=== PATIENT | male | born 1950 | race Caucasian/White ===

== ENCOUNTER → 2019-03-06 | Outpatient (CLI) | payer MEDICARE, BC ==
--- NOTE | 2019-03-06 13:01 | US ---
EXAMINATION TYPE: US duplex aorta DATE OF EXAM: 03/06/2019 COMPARISON: NONE CLINICAL HISTORY: 68-year-old male Z13.6 Screening for AAA. TECHNIQUE: Multiple sonographic images of the abdominal aorta are obtained. FINDINGS: EXAM MEASUREMENTS: Abdominal Aorta: Proximal: 1.9 x 1.8 cm Mid: 2.1 x 1.8 cm Distal: 1.9 x 1.8 cm Bifurcation: 1.5 x 1.5cm 1.4 x 1.5 cm IMPRESSION: Borderline ectatic common iliac arteries measuring up to 1.5 cm. Otherwise, no sonographic evidence f or AAA.
== END | disposition home or self-care (01) ==
LOC: RADUSWWP 08:44
PROVIDERS: ATTEND Family Medicine
DX: Z13.6 Encounter for screening for cardiovascular disorders (principal); I77.89 Other specified disorders of arteries and arterioles
CPT/HCPCS: 93979

== ENCOUNTER 2023-11-24 17:57 | Observation (INO) | payer BC, MEDICARE ==
[2023-11-24 18:14] VITALS: RESP 18; TEMP 98.7
[2023-11-24 18:41] LABS: Basophils # (A) 0.1 k/uL (0-0.2); Basophils % (A) 1 %; Eosinophils # (A) 0.2 k/uL (0-0.7); Eosinophils % (A) 2 %; HCT 50.2 % (39.0-53.0); HGB 17.6 gm/dL (13.0-17.5); Lymphocytes # (A) 2.1 k/uL (1.0-4.8); Lymphocytes % (A) 23 %; MCH 31.8 pg (25.0-35.0); Mean Platelet Volume 8.8; Monocytes # (A) 0.6 k/uL (0-1.0); Monocytes % (A) 6 %; Neutrophils # (A) 5.8 k/uL (1.3-7.7); Neutrophils % (A) 65 %; Platelet Count 220 k/uL (150-450); RBC 5.52 m/uL (4.30-5.90); RDW 12.9 % (11.5-15.5); WBC 8.9 k/uL (3.8-10.6)
[2023-11-24 18:45] LABS: INR 0.9 (<1.2); Prothrombin Time 10.2 sec (10.0-12.5)
[2023-11-24 18:46] LABS: Partial Thromboplastin Time 23.1 sec (22.0-30.0)
[2023-11-24 18:58] LABS: ALT 46 U/L (4-49); AST 50 U/L (17-59); African American GFR (CKD) >90 (>60 ml/min/1.73 sqM); Albumin 4.1 g/dL (3.5-5.0); Alkaline Phosphatase 114 U/L (38-126); Anion Gap 10 mmol/L; Blood Urea Nitrogen 13 mg/dL (9-20); Calcium 9.6 mg/dL (8.4-10.2); Carbon Dioxide 27 mmol/L (22-30); Chloride 100 mmol/L (98-107); Creatine Kinase 38 U/L (55-170); Glucose 269 mg/dL (74-99); Non-African American GFR(CKD) >90 (>60 ml/min/1.73 sqM); Potassium 4.1 mmol/L (3.5-5.1); Sodium 137 mmol/L (137-145); Total Protein 7.4 g/dL (6.3-8.2)
--- NOTE | 2023-11-24 19:14 | CT ---
EXAMINATION TYPE: CT brain cspine wo con CT DLP: 1625.8 mGycm, Automated exposure control for dose reduction was used. DATE OF EXAM: 11/24/2023 6:57 PM COMPARISON: None. CLINICAL INDICATION:Male, 73 years old with history of numbness; numbness in fingertips, pt does have known issues with his shoulders. dizziness. pt has hx of vertigo, pt says this time it isn't subsidi ng. TECHNIQUE: Brain: Multiple axial CT images of the brain were obtained without IV contrast. Cspine: Axial CT images from the skull base to the inferior aspect of T2 we obtained without intraven ous contrast. Coronal and sagittal reformatted images were also reviewed. FINDINGS: Brain: Extra-axial spaces: No abnormal extra-axial fluid collections. Ventricular system: Appear dilated in proportion to the degree of cerebral atrophy. Cerebral parenchyma: No increased attenuation to suggest acute intraparenchymal hemorrhage. The gra y-white matter interface appears maintained. Mild/moderate generalized brain atrophy. Scattered hyp oattenuating areas are seen within the cerebral white matter, nonspecific but most often seen with ch ronic microvascular ischemic changes; mild in degree. Cerebellum: No acute abnormality. Mass effect: No evidence of mass effect or midline shift. Intracranial vasculature: Mild atherosclerotic calcifications of the larger arteries near the skull b ase. Soft tissues: Normal. Visualized orbits: Orbital contents appear grossly intact. Calvarium/osseous structures: No evidence of calvarial fracture. Paranasal sinuses and mastoid air cells: Clear. Mild mucosal thickening, mucous retention cyst or po lyp in the right maxillary sinus. Mastoids are clear. Mild nasal septal deviation to the right with s mall bony spur. MRI is more sensitive for detecting acute processes such as infarct, and may be considered if clinica lly warranted. Cervical spine: Fracture: None seen. Osseous structures, spinal canal/neural foramina: Mild multilevel degenerative disk disease and facet arthrosis. Craniocervical junction is intact. I see no significant narrowing of the spinal canal or neuroforamina. Largest disc marginal osteophyte seen at C6-C7. If there is ongoing concern MRI could further evaluate. Vertebral alignment: No traumatic malalignment. Preserved normal cervical lordosis. Neck soft tissues: No acute finding.. Lung apices show some presumed scarring, no focal consolidation or pneumothorax. Other: Lung apices show no acute infiltrate or pneumothorax. IMPRESSION: CT head: 1. No acute intracranial CT abnormality. 2. Mild to moderate atrophy and chronic microvascular ischemic changes. CT cervical spine: 1. No evidence of acute cervical spine fracture or traumatic malalignment. 2. Mild cervical spondylosis.
--- NOTE | 2023-11-24 19:44 | ED ---
General Adult HPI - General Chief complaint: Neuro Symptoms/Deficit Stated complaint: stroke like symptoms Time Seen by Provider: 11/24/23 19:10 Source: patient Mode of arrival: ambulatory Limitations: no limitations - History of Present Illness Initial comments: 73-year-old man with past medical history of thyroid cancer who presents to the emergency department with right arm paresthesias, left eye visual disturbance and gait dysfunction. States that around 6 PM last night he began having sudden onset of balance issues and visual disturbance. States he feels as if his left eye is not working together with his right eye. It is making him feel off balance and as if he does not have spatial perception. He reports he almost fell because of it. He is also reporting paresthesias in his right arm and some paresthesias in his right leg. Patient went to sleep thinking that his symptoms would go away. He denies history of stroke. He previously was told that he was a diabetic however with weight loss and diet changes he did not require any medications. States he has not followed with a primary care doctor in several years. He does arrive hypertensive. Denies history of hypertension. He denies headaches. He does admit to some right-sided neck pain which is chronic since his surgery. He denies any weakness in his extremities. No other alleviating, precipitating or modifying factors - Related Data Home Medications Medication Instructions Recorded Confirmed Ibuprofen [Motrin Ib] 200 mg PO Q8H PRN 11/24/23 11/24/23 Levothyroxine Sodium 137 mcg PO DAILY@1400 11/24/23 11/24/23 Allergies Allergy/AdvReac Type Severity Reaction Status Date / Time Iodinated Contrast Media Allergy Anaphylaxis Verified 11/24/23 21:24 shellfish derived Allergy Anaphylaxis Verified 11/24/23 21:24 Tetanus Vaccines and Toxoid Allergy Anaphylaxis Verified 11/24/23 21:24 Review of Systems ROS Statement: Those systems with pertinent positive or pertinent negative responses have been documented in the HPI. ROS Other: All systems not noted in ROS Statement are negative. Past Medical History Past Medical History: Cancer, Thyroid Disorder Additional Past Medical History / Comment(s): thyroid cancer History of Any Multi-Drug Resistant Organisms: None Reported Past Surgical History: Orthopedic Surgery Additional Past Surgical History / Comment(s): thyroidectomy Past Psychological History: No Psychological Hx Reported Smoking Status: Never smoker Past Alcohol Use History: None Reported Past Drug Use History: None Reported General Exam Limitations: no limitations General appearance: alert, in no apparent distress Head exam: Present: atraumatic, normocephalic, normal inspection Eye exam: Present: normal appearance, PERRL, EOMI. Absent: scleral icterus, conjunctival injection, periorbital swelling ENT exam: Present: normal exam, mucous membranes moist Neck exam: Present: normal inspection. Absent: tenderness, meningismus, lymphadenopathy Respiratory exam: Present: normal lung sounds bilaterally. Absent: respiratory distress, wheezes, rales, rhonchi, stridor Cardiovascular Exam: Present: normal rhythm, tachycardia, normal heart sounds. Absent: systolic murmur, diastolic murmur, rubs, gallop, clicks GI/Abdominal exam: Present: soft, normal bowel sounds. Absent: distended, tenderness, guarding, rebound, rigid Extremities exam: Present: normal inspection, full ROM, normal capillary refill. Absent: tenderness, pedal edema, joint swelling, calf tenderness Back exam: Present: normal inspection Neurological exam: Present: alert, oriented X3, CN II-XII intact Psychiatric exam: Present: normal affect, normal mood Skin exam: Present: warm, dry, intact, normal color. Absent: rash Course Vital Signs 11/24/23 11/24/23 11/24/23 18:02 19:43 21:50 Temperature 98.7 F Pulse Rate 106 H 108 H 87 Respiratory 18 18 18 Rate Blood Pressure 195/123 204/117 163/99 O2 Sat by Pulse 107 H Oximetry Medical Decision Making - Medical Decision Making Was pt. sent in by a medical professional or institution (, PA, ANIMAL CARETAKER, urgent care, hospital, or retirement...) When possible be specific @ -No Did you speak to anyone other than the patient for history (EMS, parent, family, police, friend...)? What history was obtained from this source @ -Spoke with the patient's for history Did you review nursing and triage notes (agree or disagree)? Why? @ -I reviewed and agree with nursing and triage notes Were old charts reviewed (outside hosp., previous admission, EMS record, old EKG, old radiological studies, urgent care reports/EKG's, retirement records)? Report findings @ -No old charts were reviewed Differential Diagnosis (chest pain, altered mental status, abdominal pain women, abdominal pain men, vaginal bleeding, weakness, fever, dyspnea, syncope, headache, dizziness, GI bleed, back pain, seizure, CVA, palpatations, mental health, musculoskeletal)? @ -Differential CVA Ischemic stroke, hemorrhagic stroke, brain tumor, atypical migraine, Wernicke's encephalopathy, seizure, multiple sclerosis, meningitis, encephalitis, hypoglycemia, Guillain-Brito, electrolytes disturbance, myasthenia gravis.... This is not meant to be an all-inclusive list EKG interpreted by me (3pts min.). @ -Not done X-rays interpreted by me (1pt min.). @ -Yes and demonstrates no acute process CT interpreted by me (1pt min.). @ -Yes and demonstrates no acute process U/S interpreted by me (1pt. min.). @ -None done What testing was considered but not performed or refused? (CT, X-rays, U/S, labs)? Why? @ -None What meds were considered but not given or refused? Why? @ -None Did you discuss the management of the patient with other professionals (professionals i.e. , PA, ANIMAL CARETAKER, lab, RT, psych nurse, social media manager, divorce lawyer, teacher, chief wellness officer, case consultant)? Give summary @ -Spoke with Dr. Salinas who is agreeable to admission Was smoking cessation discussed for >3mins.? @ -No Was critical care preformed (if so, how long)? @ -No Were there social determinants of health that impacted care today? How? (Homelessness, low income, unemployed, alcoholism, drug addiction, transportation, low edu. Level, literacy, decrease access to med. care, snf, rehab)? @ -No Was there de-escalation of care discussed even if they declined (Discuss DNR or withdrawal of care, Hospice)? DNR status @ -No What co-morbidities impacted this encounter? (DM, HTN, Smoking, COPD, CAD, Cancer, CVA, ARF, Chemo, Hep., AIDS, mental health diagnosis, sleep apnea, morbid obesity)? @ -None Was patient admitted / discharged? Hospital course, mention meds given and route, prescriptions, significant lab abnormalities, going to OR and other pertinent info. @ -Upon arrival patient is placed into room 3. A thorough history and physical exam was performed. Patient does not have any appreciable weakness, perceived sensory changes or speech deficits and therefore his score is 0. His reported symptoms are concerning for CVA however he is 24 hours past the onset of his symptoms and therefore code stroke was not activated. I did conduct laboratory studies. Patient is sent for a CT of his head. Upon return the results they are discussed with the patient. He does have hypertension and therefore a dose of labetalol is ordered. Patient also has hyperglycemia with concern for diabetes and therefore hemoglobin A1c is drawn. Patient will be placed on a sliding scale. As he is reporting left visual deficit with right sided paresthe lissette in his arms and legs I did recommend further evaluation of CVA especially since the patient now has risk factors. Patient was agreeable to this. Patient will be admitted to Dr. Salinas to admission. I will place collagen on consult Undiagnosed new problem with uncertain prognosis? @ -Yes Drug Therapy requiring intensive monitoring for toxicity (Heparin, Nitro, Insulin, Cardizem)? @ -No Were any procedures done? @ -No Diagnosis/symptom? @ -Acute right arm paresthesias, acute visual disturbance, acute ataxia, possible CVA, new onset hypertension, new onset hyperglycemia Acute, or Chronic, or Acute on Chronic? @ -Acute Uncomplicated (without systemic symptoms) or Complicated (systemic symptoms)? @ -Complicated Side effects of treatment? @ -No Exacerbation, Progression, or Severe Exacerbation? @ -No Poses a threat to life or bodily function? How? (Chest pain, USA, GA, pneumonia, PE, COPD, DKA, ARF, appy, cholecystitis, CVA, Diverticulitis, Homicidal, Suicidal, threat to staff... and all critical care pts) @ -Yes as patient presents with possible concern for CVA - Lab Data Result diagrams: 11/24/23 18:28 11/24/23 18:28 Lab Results 11/24/23 11/24/23 11/24/23 Range/Units 18:28 18:28 18:28 WBC 8.9 (3.8-10.6) k/uL RBC 5.52 (4.30-5.90) m/uL Hgb 17.6 H (13.0-17.5) gm/dL Hct 50.2 (39.0-53.0) % MCV 91.0 (80.0-100.0) fL MCH 31.8 (25.0-35.0) pg MCHC 35.0 (31.0-37.0) g/dL RDW 12.9 (11.5-15.5) % Plt Count 220 (150-450) k/uL MPV 8.8 Neutrophils % 65 % Lymphocytes % 23 % Monocytes % 6 % Eosinophils % 2 % Basophils % 1 % Neutrophils # 5.8 (1.3-7.7) k/uL Lymphocytes # 2.1 (1.0-4.8) k/uL Monocytes # 0.6 (0-1.0) k/uL Eosinophils # 0.2 (0-0.7) k/uL Basophils # 0.1 (0-0.2) k/uL PT 10.2 (10.0-12.5) sec INR 0.9 (<1.2) APTT 23.1 (22.0-30.0) sec Sodium 137 (137-145) mmol/L Potassium 4.1 (3.5-5.1) mmol/L Chloride 100 (98-107) mmol/L Carbon Dioxide 27 (22-30) mmol/L Anion Gap 10 mmol/L BUN 13 (9-20) mg/dL Creatinine 0.77 (0.66-1.25) mg/dL Est GFR (CKD-EPI)AfAm >90 (>60 ml/min/1.73 sqM) Est GFR (CKD-EPI)NonAf >90 (>60 ml/min/1.73 sqM) Glucose 269 H (74-99) mg/dL Calcium 9.6 (8.4-10.2) mg/dL Total Bilirubin 1.0 (0.2-1.3) mg/dL AST 50 (17-59) U/L ALT 46 (4-49) U/L Alkaline Phosphatase 114 (38-126) U/L Creatine Kinase 38 L (55-170) U/L Troponin I (0.000-0.034) ng/mL Total Protein 7.4 (6.3-8.2) g/dL Albumin 4.1 (3.5-5.0) g/dL Urine Color Urine Appearance (Clear) Urine pH (5.0-8.0) Ur Specific [place] (1.001-1.035) Urine Protein (Negative) Urine Glucose (UA) (Negative) Urine Ketones (Negative) Urine Blood (Negative) Urine Nitrite (Negative) Urine Bilirubin (Negative) Urine Urobilinogen (<2.0) mg/dL Ur Leukocyte Esterase (Negative) Urine RBC (0-5) /hpf Urine WBC (0-5) /hpf Urine Mucus (None) /hpf 11/24/23 11/24/23 Range/Units 18:28 19:36 WBC (3.8-10.6) k/uL RBC (4.30-5.90) m/uL Hgb (13.0-17.5) gm/dL Hct (39.0-53.0) % MCV (80.0-100.0) fL MCH (25.0-35.0) pg MCHC (31.0-37.0) g/dL RDW (11.5-15.5) % Plt Count (150-450) k/uL MPV Neutrophils % % Lymphocytes % % Monocytes % % Eosinophils % % Basophils % % Neutrophils # (1.3-7.7) k/uL Lymphocytes # (1.0-4.8) k/uL Monocytes # (0-1.0) k/uL Eosinophils # (0-0.7) k/uL Basophils # (0-0.2) k/uL PT (10.0-12.5) sec INR (<1.2) APTT (22.0-30.0) sec Sodium (137-145) mmol/L Potassium (3.5-5.1) mmol/L Chloride (98-107) mmol/L Carbon Dioxide (22-30) mmol/L Anion Gap mmol/L BUN (9-20) mg/dL Creatinine (0.66-1.25) mg/dL Est GFR (CKD-EPI)AfAm (>60 ml/min/1.73 sqM) Est GFR (CKD-EPI)NonAf (>60 ml/min/1.73 sqM) Glucose (74-99) mg/dL Calcium (8.4-10.2) mg/dL Total Bilirubin (0.2-1.3) mg/dL AST (17-59) U/L ALT (4-49) U/L Alkaline Phosphatase (38-126) U/L Creatine Kinase (55-170) U/L Troponin I <0.012 (0.000-0.034) ng/mL Total Protein (6.3-8.2) g/dL Albumin (3.5-5.0) g/dL Urine Color Light Yellow Urine Appearance Clear (Clear) Urine pH 6.0 (5.0-8.0) Ur Specific [place] 1.020 (1.001-1.035) Urine Protein 1+ H (Negative) Urine Glucose (UA) 4+ H (Negative) Urine Ketones 2+ H (Negative) Urine Blood Negative (Negative) Urine Nitrite Negative (Negative) Urine Bilirubin Negative (Negative) Urine Urobilinogen <2.0 (<2.0) mg/dL Ur Leukocyte Esterase Negative (Negative) Urine RBC 1 (0-5) /hpf Urine WBC 1 (0-5) /hpf Urine Mucus Rare H (None) /hpf Disposition Clinical Impression: Arm paresthesia, right, Hypertension, Hyperglycemia Disposition: ADMITTED IP TO THIS [facility] Condition: Stable Is patient prescribed a controlled substance at d/c from ED?: No Time of Disposition: 21:22 Decision to Admit Reason: Admit from EC Decision Date: 11/24/23 Decision Time: 21:22
[2023-11-24 20:05] LABS: Appearance,Urine Clear (Clear); Bilirubin,Urine Negative (Negative); Blood,Urine Negative (Negative); Color,Urine Light Yellow; Glucose,Urine (UA) 4+ (Negative); Leukocyte Esterase,Urine Negative (Negative); Mucus,Urine Rare /hpf; Nitrite,Urine Negative (Negative); Protein,Urine 1+ (Negative); RBC,Urine 1 /hpf (0-5); Urobilinogen,Urine <2.0 mg/dL (<2.0); WBC,Urine 1 /hpf (0-5)
[2023-11-24 20:37] LABS: Ketones,Urine 2+ (Negative)
--- NOTE | 2023-11-24 20:50 | XR ---
EXAMINATION TYPE: XR chest 2V DATE OF EXAM: 11/24/2023 6:40 PM CLINICAL INDICATION:Male, 73 years old with history of altered mental status; [facility] COMPARISON: None TECHNIQUE: XR chest 2V. Frontal and lateral views of the chest.. FINDINGS: Lines/Tubes/Devices: No indwelling lines are seen. Heart/mediastinum: There is upper normal. Moderate aortic tortuosity. Central airways appear patent. Pulmonary vascularity: Not increased, Lungs/Pleura: Lungs appear mildly hyperinflated with interstitial coarsening, this can be seen with C OPD. No focal infiltrate, effusion, or pneumothorax. Musculoskeletal: No acute osseous abnormality demonstrated in the limits of the exam. Degenerative c hanges of the spine and shoulders. Other findings: None. IMPRESSION: No acute cardiopulmonary abnormality.
[2023-11-24] MEDS ORDERED: ACETAMINOPHEN TAB 325 MG TAB PO PRN (21:18)
[2023-11-24] MEDS ORDERED: NALOXONE 0.4 MG/ML 1 ML VIAL IV PRN (21:18)
[2023-11-24] MEDS: SODIUM CHLORIDE 0.9% 1,000 ML IV SCH (21:49)
[2023-11-24] MEDS: LABETALOL 5 MG/ML VIAL MDV IVP STA (21:49)
[2023-11-24] MEDS ORDERED: DEXTROSE 50% SYRINGE 50 ML IVP PRN ×2 (22:02)
[2023-11-24] MEDS: ASPIRIN 325 MG TAB PO SCH (22:37)
[2023-11-24 23:51] LABS: Glucose,Whole Blood 245 mg/dL (70-110)
[2023-11-25 02:41] VITALS: BP 185/93; PULSE 95
[2023-11-25] MEDS ORDERED: INSULIN ASPART (NovoLOG) 100 UNIT/ML VIAL SQ SCH (07:30)
[2023-11-25] MEDS ORDERED: LEVOTHYROXINE 137 MCG TAB PO SCH (14:00)
== END 2023-11-25 02:30 | disposition left against medical advice (07) ==
LOC: EC 17:57 → 3SCARD 21:20
PROVIDERS: ADMIT Internal Medicine; ATTEND Internal Medicine
DX: R20.2 Paresthesia of skin (principal); R73.9 Hyperglycemia, unspecified; I10 Essential (primary) hypertension; E89.0 Postprocedural hypothyroidism; Z85.850 Personal history of malignant neoplasm of thyroid; Z79.890 Hormone replacement therapy; Z53.29 Procedure and treatment not carried out because of patient's decision for other reasons
CPT/HCPCS: 96374; 99285; 36415; 93005; 80053; 84443; 82550; 84484; 85025; 85610; 85730; 81001; 83036; 71046; 72125; 70450; G0378 ×2; J1920

== ENCOUNTER 2023-11-25 12:14 | Inpatient (IN) | payer MEDICARE ==
--- NOTE | 2023-11-25 12:59 | ED ---
General Adult HPI - General Chief complaint: Neuro Symptoms/Deficit Stated complaint: Tingling in arm/side, blurred vision Time Seen by Provider: 11/25/23 12:36 Source: patient, family, RN notes reviewed Mode of arrival: ambulatory Limitations: no limitations - History of Present Illness Initial comments: Patient is a 73-year-old male presenting to the emergency department with concern for neurological problems. Onset of symptoms was yesterday evening. Patient left early this morning because the bed was not comfortable. Patient is having continued symptoms however and decided to return. Patient is feeling off balance and having difficulty with walking. Patient has right arm paresthesia. Patient also has double vision. Patient does not feel like his left eye is working in coordination with his right eye. - Related Data Home Medications Medication Instructions Recorded Confirmed Ibuprofen [Motrin Ib] 200 mg PO Q8H PRN 11/24/23 11/24/23 Levothyroxine Sodium 137 mcg PO DAILY@1400 11/24/23 11/24/23 Allergies Allergy/AdvReac Type Severity Reaction Status Date / Time Iodinated Contrast Media Allergy Anaphylaxis Verified 11/25/23 12:35 shellfish derived Allergy Anaphylaxis Verified 11/25/23 12:35 Tetanus Vaccines and Toxoid Allergy Anaphylaxis Verified 11/25/23 12:35 Review of Systems ROS Statement: Those systems with pertinent positive or pertinent negative responses have been documented in the HPI. ROS Other: All systems not noted in ROS Statement are negative. Constitutional: Denies: fever Eyes: Reports: as per HPI, vision change ENT: Denies: ear pain Respiratory: Denies: cough Cardiovascular: Denies: chest pain Endocrine: Denies: fatigue Gastrointestinal: Denies: abdominal pain Neurological: Reports: as per HPI, paresthesias, abnormal gait. Denies: headache, weakness Past Medical History Past Medical History: Cancer, Thyroid Disorder Additional Past Medical History / Comment(s): thyroid cancer History of Any Multi-Drug Resistant Organisms: None Reported Past Surgical History: Orthopedic Surgery Additional Past Surgical History / Comment(s): thyroidectomy Past Psychological History: No Psychological Hx Reported Smoking Status: Never smoker Past Alcohol Use History: None Reported Past Drug Use History: None Reported General Exam Limitations: no limitations General appearance: alert, in no apparent distress Head exam: Present: normocephalic Eye exam: Present: normal appearance, PERRL, EOMI Neck exam: Present: normal inspection Respiratory exam: Present: normal lung sounds bilaterally Cardiovascular Exam: Present: regular rate, normal rhythm GI/Abdominal exam: Present: soft. Absent: tenderness Extremities exam: Present: normal inspection. Absent: pedal edema, calf tenderness Neurological exam: Present: alert, oriented X3, CN II-XII intact. Absent: motor sensory deficit Expanded Neurological exam: Present: protecting the airway Speech: Present: fluid speech Cranial nerves: EOM's Intact: Normal, Facial Sensation: Normal Sensory exam: Upper Extremity Light Touch: Normal, Lower Extremity Light Touch: Abnormal Right (Patient states there may be decreased sensation right lower leg) Motor strength exam: RUE: 5, LUE: 5, RLE: 5, LLE: 5 Eye Response: (4) open spontaneously Motor Response: (6) obeys commands Verbal Response: (5) oriented Psychiatric exam: Present: normal affect, normal mood Skin exam: Present: normal color Course Vital Signs 11/25/23 12:32 Temperature 98.2 F Pulse Rate 91 Respiratory 20 Rate Blood Pressure 174/92 O2 Sat by Pulse 97 Oximetry EKG Findings - EKG Results: EKG: interpreted by ERMD (PVCs present. Right bundle branch block.), sinus rhythm, normal axis, normal ST/T Medical Decision Making - Medical Decision Making Was pt. sent in by a medical professional or institution (EMILIO Doyle, BULK COOLER INSTALLER, urgent care, hospital, or senior care...) When possible be specific @ -No Did you speak to anyone other than the patient for history (EMS, parent, family, police, friend...)? What history was obtained from this source @ - is present and helps provide history including patient being off balance Did you review nursing and triage notes (agree or disagree)? Why? @ -I reviewed and agree with nursing and triage notes Were old charts reviewed (outside hosp., previous admission, EMS record, old EKG, old radiological studies, urgent care reports/EKG's, senior care records)? Report findings @ -Head CT from yesterday reviewed shows no acute process Differential Diagnosis (chest pain, altered mental status, abdominal pain women, abdominal pain men, vaginal bleeding, weakness, fever, dyspnea, syncope, headache, dizziness, GI bleed, back pain, seizure, CVA, palpatations, mental health, musculoskeletal)? @ -Differential Weakness: Hypoglycemia, shock, sepsis, hyponatremia, anemia, infection, ND, ETOH, adverse medicine reaction, overdose, stroke, this is not meant to be an all-inclusive list. EKG interpreted by me (3pts min.). @ -As above X-rays interpreted by me (1pt min.). @ -None done CT interpreted by me (1pt min.). @ -None done U/S interpreted by me (1pt. min.). @ -None done What testing was considered but not performed or refused? (CT, X-rays, U/S, labs)? Why? @ -Consider CT scan of the brain however patient had 1 done yesterday without change of symptoms. What meds were considered but not given or refused? Why? @ -None Did you discuss the management of the patient with other professionals (professionals i.e. , PA, BULK COOLER INSTALLER, lab, RT, psych nurse, social services specialist, band reamer machine operator, teacher, licensed mortgage loan officer, supportive employment case manager)? Give summary @ -Case was discussed with Dr. Vincent who will admit covering hospital call Was smoking cessation discussed for >3mins.? @ -No Was critical care preformed (if so, how long)? @ -No Were there social determinants of health that impacted care today? How? (Homelessness, low income, unemployed, alcoholism, drug addiction, transpo rtation, low edu. Level, literacy, decrease access to med. care, shelter, rehab)? @ -No Was there de-escalation of care discussed even if they declined (Discuss DNR or withdrawal of care, Hospice)? DNR status @ -No What co-morbidities impacted this encounter? (DM, HTN, Smoking, COPD, CAD, Cancer, CVA, ARF, Chemo, Hep., AIDS, mental health diagnosis, sleep apnea, morbid obesity)? @ -None Was patient admitted / discharged? Hospital course, mention meds given and route, prescriptions, significant lab abnormalities, going to OR and other pertinent info. @ -Patient will be admitted. Neurology consult will be placed. Patient and family are updated. Admission orders placed. Undiagnosed new problem with uncertain prognosis? @ -No Drug Therapy requiring intensive monitoring for toxicity (Heparin, Nitro, Insulin, Cardizem)? @ -No Were any procedures done? @ -No Diagnosis/symptom? @ -CVA Acute, or Chronic, or Acute on Chronic? @ -Acute Uncomplicated (without systemic symptoms) or Complicated (systemic symptoms)? @ -Default Side effects of treatment? @ -No Exacerbation, Progression, or Severe Exacerbation? @ -No Poses a threat to life or bodily function? How? (Chest pain, USA, ND, pneumonia, PE, COPD, DKA, ARF, appy, cholecystitis, CVA, Diverticulitis, Homicidal, Suicidal, threat to staff... and all critical care pts) @ -No Patient is not a candidate for thrombolytics because symptoms greater than 4.5 hours. Disposition Clinical Impression: Cerebrovascular accident (CVA) Disposition: ADMITTED IP TO THIS HOSP Condition: Serious Is patient prescribed a controlled substance at d/c from ED?: No Referrals: None,Stated [Primary Care Provider] - 1-2 days Time of Disposition: 13:04
[2023-11-25 13:13] LABS: Basophils # (A) 0.1 k/uL (0-0.2); Basophils % (A) 1 %; Eosinophils # (A) 0.1 k/uL (0-0.7); Eosinophils % (A) 2 %; HCT 45.4 % (39.0-53.0); HGB 15.8 gm/dL (13.0-17.5); Lymphocytes # (A) 1.4 k/uL (1.0-4.8); Lymphocytes % (A) 18 %; MCH 31.8 pg (25.0-35.0); MCHC 34.7 g/dL (31.0-37.0); MCV 91.5 fL (80.0-100.0); Mean Platelet Volume 8.4; Monocytes # (A) 0.5 k/uL (0-1.0); Monocytes % (A) 7 %; Neutrophils # (A) 5.6 k/uL (1.3-7.7); Neutrophils % (A) 71 %; Platelet Count 212 k/uL (150-450); RBC 4.96 m/uL (4.30-5.90); RDW 12.5 % (11.5-15.5); WBC 7.9 k/uL (3.8-10.6)
[2023-11-25 13:31] LABS: INR 0.9 (<1.2); Prothrombin Time 10.4 sec (10.0-12.5)
[2023-11-25 13:33] LABS: ALT 42 U/L (4-49); AST 44 U/L (17-59); African American GFR (CKD) >90 (>60 ml/min/1.73 sqM); Albumin 3.7 g/dL (3.5-5.0); Alkaline Phosphatase 97 U/L (38-126); Anion Gap 6 mmol/L; Blood Urea Nitrogen 15 mg/dL (9-20); Calcium 9.3 mg/dL (8.4-10.2); Carbon Dioxide 28 mmol/L (22-30); Chloride 101 mmol/L (98-107); Creatine Kinase 43 U/L (55-170); Glucose 298 mg/dL (74-99); Non-African American GFR(CKD) >90 (>60 ml/min/1.73 sqM); Sodium 135 mmol/L (137-145); Total Protein 6.7 g/dL (6.3-8.2)
[2023-11-25 13:34] LABS: Partial Thromboplastin Time 21.2 sec (22.0-30.0)
--- NOTE | 2023-11-25 13:51 | US ---
EXAMINATION TYPE: US carotid duplex BILAT DATE OF EXAM: 11/25/2023 COMPARISON: NONE CLINICAL INDICATION: Male, 73 years old with history of Stenosis; HTN- no meds. No hx TIA. Numbness right arm. Double vision. TECHNIQUE: Carotid duplex ultrasound examination. Indirect Doppler criteria was utilized. FINDINGS: EXAM MEASUREMENTS: RIGHT: Peak Systolic Velocity (PSV) cm/sec ----- Right CCA: 36.2 ----- Right ICA: 78.2 ----- Right ECA: 91.4 ICA/CCA ratio: 2.2 RIGHT: End Diastole cm/sec ----- Right CCA: 7.8 ----- Right ICA: 23.2 ----- Right ECA: 0.0 LEFT: Peak Systolic Velocity (PSV) cm/sec ----- Left CCA: 53.1 ----- Left ICA: 48.3 ----- Left ECA: 104.8 ICA/CCA ratio: 0.9 LEFT: End Diastole cm/sec ----- Left CCA: 8.3 ----- Left ICA: 14.2 ----- Left ECA: 6.3 VERTEBRALS (direction of flow): Right Vertebral: Antegrade Left Vertebral: Antegrade Rhythm: Normal IT OPERATIONS SPECIALIST NOTES: Plaque seen in bilateral bulbs with wall thickening in right bulb. No elevated ve locities. IMPRESSION: No evidence for hemodynamically significant stenosis Criteria for Assigning % of Stenosis / Diameter reduction (Estimation based on the indirect measurements of the internal carotid artery velocities (ICA PSV). 1. Normal (no stenosis)=ICA PSV < 125 cm/s: ratio < 2.0: ICA EDV<40 cm/s. 2. Less than 50% stenosis=ICA PSV < 125 cm/s: ratio < 2.0: ICA EDV<40 cm/s. 3. 50 to 69% stenosis=ICA PSV of 125 to 230 cm/s: ration 2.0 ? 4.0: ICA EDV 40-100 cm/s. 4. Greater than 70% stenosis to near occlusion= ICA PSV > 230 cm/s: ratio > 4.0: ICA EDV > 100 cm/s. 5. Near occlusion= ICA PSV velocities may be low or undetectable: variable ratio and ICA EDV. 6. Total occlusion=unable to detect flow.
[2023-11-25] MEDS: SODIUM CHLORIDE 0.9% 1,000 ML IV SCH (13:56)
[2023-11-25] MEDS: ASPIRIN 325 MG TAB PO STA (13:56)
--- NOTE | 2023-11-25 14:39 | P.HPIM ---
History of Present Illness H&P Date: 11/25/23 Chief Complaint: Difficulty walking/off-balance 73-year-old male presenting to the emergency department with concern for neurological problems. Onset of symptoms was yesterday evening. Patient left early this morning because the bed was not comfortable. Patient is having continued symptoms however and decided to return. Patient is feeling off balance and having difficulty with walking. Patient has right arm paresthesia. Patient also has double vision. Patient does not feel like his left eye is working in coordination with his right eye. States that around 6 PM last night he began having sudden onset of balance issues and visual disturbance. States he feels as if his left eye is not working together with his right eye. It is making him feel off balance and as if he does not have spatial perception. He reports he almost fell because of it. He is also reporting paresthesias in his right arm and some paresthesias in his right leg. Patient went to sleep thinking that his symptoms would go away. He denies history of stroke. He previously was told that he was a diabetic however with weight loss and diet changes he did not require any medications. Alaina pérez he has not followed with a primary care doctor in several years. He does arrive hypertensive. Denies history of hypertension. He denies headaches. He does admit to some right-sided neck pain which is chronic since his surgery. He denies any weakness in his extremities. No other alleviating, precipitating or modifying factors EKG reveals sinus rhythm with frequent PVCs Bilateral carotid Doppler was completed and does not reveal any evidence for hemodynamically significant stenosis CT of the head and cervical spine was completed which reveals mild to moderate atrophy and chronic microvascular ischemic changes of the brain; CT cervical spine reveals mild cervical spondylosis Blood work reveals WBC of 7.9, hemoglobin of 15.8 and platelet count of 212, sodium 135, potassium 4.2, BUNs/creatinine of 15/0.73 and blood glucose of 298 Review of Systems REVIEW OF SYSTEMS: CONSTITUTIONAL: No fever, no malaise, no fatigue. HEENT: No recent visual problems or hearing problems. Denied any sore throat. CARDIOVASCULAR: No chest pain, orthopnea, PND, no palpitations, no syncope. PULMONARY: No shortness of breath, no cough, no hemoptysis. GASTROINTESTINAL: No diarrhea, no nausea, no vomiting, no abdominal pain. NEUROLOGICAL: No headaches, no weakness, no numbness. HEMATOLOGICAL: Denies any bleeding or petechiae. GENITOURINARY: Denies any burning micturition, frequency, or urgency. MUSCULOSKELETAL/RHEUMATOLOGICAL: Denies any joint pain, swelling, or any muscle pain. ENDOCRINE: Denies any polyuria or polydipsia. The rest of the 14-point review of systems is negative. Past Medical History Past Medical History: Cancer, Thyroid Disorder Additional Past Medical History / Comment(s): thyroid cancer History of Any Multi-Drug Resistant Organisms: None Reported Past Surgical History: Orthopedic Surgery Additional Past Surgical History / Comment(s): thyroidectomy Past Psychological History: No Psychological Hx Reported Smoking Status: Never smoker Past Alcohol Use History: None Reported Past Drug Use History: None Reported Medications and Allergies Home Medications Medication Instructions Recorded Confirmed Type Ibuprofen [Motrin Ib] 200 mg PO Q8H PRN 11/24/23 11/24/23 History Levothyroxine Sodium 137 mcg PO DAILY@1400 11/24/23 11/24/23 History Allergies Allergy/AdvReac Type Severity Reaction Status Date / Time Iodinated Contrast Media Allergy Anaphylaxis Verified 11/25/23 12:35 shellfish derived Allergy Anaphylaxis Verified 11/25/23 12:35 Tetanus Vaccines and Toxoid Allergy Anaphylaxis Verified 11/25/23 12:35 Physical Exam Vitals: Vital Signs Temp Pulse Resp BP Pulse Ox 11/25/23 13:52 88 18 193/105 96 11/25/23 12:32 98.2 F 91 20 174/92 97 Intake and Output 11/24/23 11/25/23 11/25/23 22:59 06:59 14:59 Other: Weight 102.058 kg General appearance: alert, in no apparent distress Head exam: Present: normocephalic Eye exam: Present: normal appearance, PERRL, EOMI Neck exam: Present: normal inspection Respiratory exam: Present: normal lung sounds bilaterally Cardiovascular Exam: Present: regular rate, normal rhythm GI/Abdominal exam: Present: soft. Absent: tenderness Extremities exam: Present: normal inspection. Absent: pedal edema, calf tenderness Neurological exam: Present: alert, oriented X3, CN II-XII intact. Absent: motor sensory deficit Psychiatric exam: Present: normal affect, normal mood Skin exam: Present: normal color Results CBC & Chem 7: 11/25/23 13:06 11/25/23 13:06 Labs: Abnormal Lab Results - Last 24 Hours (Table) 11/25/23 11/25/23 Range/Units 13:06 13:06 APTT 21.2 L (22.0-30.0) sec Sodium 135 L (137-145) mmol/L Glucose 298 H (74-99) mg/dL Creatine Kinase 43 L (55-170) U/L Assessment and Plan Assessment: 1. Paresthesia right upper extremity --Workup completed in ED including CT of the head and carotid Doppler has been unremarkable -- Patient will be admitted to telemetry; we will monitor neurochecks per protocol -- Consult neurology for further 2. Hyperglycemia; no history of diabetes mellitus; patient received 5 units of short acting insulin subcu in ED; will monitor Accu-Cheks before every meal and at bedtime with insulin sliding scale 3. Hypothyroidism; levothyroxine 137 mcg daily DVT prophylaxis; SCDs CODE STATUS; full code
[2023-11-25 14:51] LABS: Glucose,Whole Blood 284 mg/dL (70-110)
[2023-11-25] MEDS: INSULIN REGULAR 100 UNIT/ML VIAL (IM/SQ) SQ ONE (15:27)
--- NOTE | 2023-11-25 16:50 | P.CNNES ---
History of Present Illness Consult date: 11/25/23 Requesting physician: Sorin Dickerson Reason for Consult: cva History of Present Illness: this is a 73-year-old gentleman who presented emergency department because of numbness over the right upper extremity as well as right lower extremity with the diplopia. Patient stated that the he noticed numbness in the right upper ex treme a mostly in the hand forearm and he feels numb tingling and feels that there is numbness in the right chest region which she noticed about 2 days ago. He also noticed that he's having double vision in which he seeing things horizontal. He denies any weakness. Denies any difficulty swallowing or getting his words out. He feels because of his double vision is having difficulty walking. Denies any history of stroke or TIA. Denies history of seizures. Denies history of atrial fibrillation. He is not on any antiplatelets at home. He denies ptosis of eyes. He states that since she's been in the hospital is been having elevated blood pressure and he does not have any underlying history of hypertensionwas told he likely has underlying hypertension. hHe was told that his sugar has been elevated likely has diabetes mellitus.he initially came to the emergency department yesterday for those complaintsbut states that he has some right neck pain which is chronic since he had surgery.he also felt his left eye is not working and coordination with the right eye. I personally reviewed the ED note and I thought she stated that she is admitting the patient is unsure what transpired yesterday. Some of the work-up consisted of: His blood pressure is as high as 190's/100's. CBC with differential is unremarkable. Calcium BUN/CR is normal. Carotid duplex: Is reported as no evidence for hemodynamically significant stenosis. Recent HbA1c from yesterday is 11.3 CT head and cervical spine from yesterday is for head is no acute intracranial process. Ct cervical is no evidence of acute spine fracture or malaignement but has mild cervical spondylosis. Review of Systems The positive and negative as per HPI. Past Medical History Past Medical History: Cancer, Thyroid Disorder Additional Past Medical History / Comment(s): thyroid cancer History of Any Multi-Drug Resistant Organisms: None Reported Past Surgical History: Orthopedic Surgery Additional Past Surgical History / Comment(s): thyroidectomy Past Psychological History: No Psychological Hx Reported Smoking Status: Never smoker Past Alcohol Use History: None Reported Past Drug Use History: None Reported Medications and Allergies Home Medications Medication Instructions Recorded Confirmed Type Ibuprofen [Motrin Ib] 200 mg PO Q8H PRN 11/24/23 11/25/23 History Levothyroxine Sodium 137 mcg PO DAILY@1400 11/24/23 11/25/23 History Allergies Allergy/AdvReac Type Severity Reaction Status Date / Time Iodinated Contrast Media Allergy Anaphylaxis Verified 11/25/23 14:58 shellfish derived Allergy Anaphylaxis Verified 11/25/23 14:58 Tetanus Vaccines and Toxoid Allergy Anaphylaxis Verified 11/25/23 14:58 Physical Examination - Vital Signs Vital Signs: Vital Signs Temp Pulse Resp BP Pulse Ox 11/25/23 15:26 86 18 190/106 94 L 11/25/23 13:52 88 18 193/105 96 11/25/23 12:32 98.2 F 91 20 174/92 97 Intake and Output 11/25/23 11/25/23 11/25/23 06:59 14:59 22:59 Other: Weight 102.058 kg GENERAL: The patient is lying in bed and is not in acute distress. NEUROLOGICAL: Higher mental function: The patient is awake, alert, oriented to self, place and time. Patient is following commands. No aphasia and no neglect. Cranial nerves: The pupils are round, equal and reactive to light and accommodation. Visual sharif are full to confrontation throughout. Extraocular movement is intact no nystagmus is noted. Facial sensation is normal to touch throughout. The facial strength is normal throughout. Hearing is normal bilaterally to hand rub. Tongue is midline and moved [id number] without any difficulty. No dysarthria is noted. Shoulder shrug is normal bilaterally. Motor: The strength is 5 over 5 throughout. Normal tone and bulk. Cerebellum: Normal finger to nose bilaterally. Sensation: Sensation is normal to touch throughout. Reflexes (right/left): 1+ throughout. Plantars are downgoing bilaterally. Results - Laboratory Findings CBC and BMP: 11/25/23 13:06 11/25/23 13:06 Abnormal Lab Findings: Abnormal Labs 11/25/23 11/25/23 11/25/23 13:06 13:06 14:50 APTT 21.2 L Sodium 135 L Glucose 298 H POC Glucose (mg/dL) 284 H Creatine Kinase 43 L Assessment and Plan Assessment: This is a 73 y/o gentleman with paresthesia of the right side, diplopia since on 11/24/2023. He had newly diagnosed uncontrolled DM (HbA1c 11.3) and hypertension Paresthesia and diplopia: Probable due to acute to subacute stroke. Had CT head which was negative. Rule out paresthesia of arm not due to cervical which I feel unlikely. Hypertensive urgency Newly diagnosed uncontrolled DM (HbA1c 11.3) Plan: I ordered a repeat CT head. Will also pursue with MRI Brain. 2D echo, lipid panel are ordered and pending Patient is started on ASA 325mg daily and I started on Lipitor 40mg qhs for sec ondary stroke prophylaxis. If imaging confirm stroke will start dual antiplatelets. He was not on antiplatelets prior to this. I ordered TSH and Vitamin B12 level. Continue neuro checks Cardiac monitoring. PT, OT and DIGITAL TRAFFIC COORDINATOR are consulted. Will defer the rest of medical management to primary team. For DVT prophylaxis: I started on subq heparin 5000U every 12 hours. The plan is discussed with patient. Thank you for the consultation Time with Patient: Greater than 30
--- NOTE | 2023-11-25 17:24 | CT ---
EXAMINATION TYPE: CT brain wo con CT DLP: 1132.9 mGycm, Automated exposure control for dose reduction was used. DATE OF EXAM: 11/25/2023 5:10 PM COMPARISON: 11/24/2023. CLINICAL INDICATION:Male, 73 years old with history of stroke. paresthesia right side and visual dis turb, weakness TECHNIQUE: Brain: Axial CT images of the brain were obtained with coronal and sagittal reformats created and rev iewed. Contrast used: None. Oral contrast used: None. FINDINGS: Brain: Extra-axial spaces: No abnormal extra-axial fluid collections. Ventricular system: Dilatation in proportion to cerebral atrophy. Cerebral parenchyma: Cerebral atrophy. No acute intraparenchymal hemorrhage or mass effect. The camacho -white junction is well differentiated. Scattered hypoattenuating areas are seen within the white mat ter. Cerebellum: Unremarkable. Mass effect: No evidence of midline shift. Intracranial vasculature: unremarkable Soft tissues: Normal. Calvarium/osseous structures: No depressed skull fracture. Paranasal sinuses and mastoid air cells: Mild scattered paranasal sinus disease. Visualized orbits: Orbital contents are intact. IMPRESSION: 1. No acute intracranial process. 2. Nonspecific white matter changes, likely secondary to chronic small vessel ischemic disease.
[2023-11-25] MEDS: LORazepam 2 MG/ML INJ IV STA (17:35)
--- NOTE | 2023-11-25 18:46 | MR ---
EXAMINATION TYPE: MR brain wo/w con DATE OF EXAM: 11/25/2023 6:16 PM CLINICAL INDICATION:Male, 73 years old with history of stroke. paresthesia and diplopia; PHH, Stroke , Paresthesia and diplopia COMPARISON: 11/25/2023. TECHNIQUE: Multi planar, multi sequence imaging was performed through the brain including: T1, T2, In version recovery, susceptibility weighted imaging and gradient echo imaging and Diffusion weighted im aging. The patient was then given intravenous contrast and multi planar, T1 fat-saturation images wer e obtained. IV Contrast: 10.5 cc Gadavist FINDINGS: Restricted diffusion within the left meenu with another smaller focus more centrally distrib uted midline. There is also on postcontrast imaging suggestion of high-grade stenosis of the left M2 segment best appreciated on series 901 image 43 and series 903 image 18. The camacho-white junctions, ve ntricular system, basal cisterns appear unremarkable. Intracranial arterial flow voids are maintaine d. Midline structures show no abnormality. Scattered foci of high T2 signal intensity are seen within the periventricular white matter. The susceptibility weighted images do not reveal any evidence for micro-hemorrhage. After administration of gadolinium, no abnormal enhancement is seen. The bone marrow signal is within normal limits. Paranasal sinuses and mastoid air cells: No significant paranasal sinus disease. Visualized orbits: Orbital contents are intact. IMPRESSION: 1. Acute/subacute CVA involving the left meenu with possible more central focus of infarct also presen t. 2. Left M2 segment stenosis suggested. For confirmation a CTA head recommended. 3. Scattered nonspecific white matter changes throughout the brain likely secondary to chronic small vessel ischemic disease.
[2023-11-25] MEDS: ATORVASTATIN 40 MG TAB PO SCH (23:11)
[2023-11-25] MEDS: HEPARIN SODIUM,PORCINE 5,000 UNIT/ML 1 ML VIAL SQ SCH (23:13)
[2023-11-26] MEDS: ASPIRIN 325 MG TAB PO SCH (09:09)
[2023-11-26 09:23] LABS: Basophils # (A) 0.1 k/uL (0-0.2); Basophils % (A) 1 %; Eosinophils # (A) 0.1 k/uL (0-0.7); Eosinophils % (A) 2 %; HCT 48.9 % (39.0-53.0); HGB 16.2 gm/dL (13.0-17.5); Lymphocytes # (A) 1.5 k/uL (1.0-4.8); Lymphocytes % (A) 17 %; MCHC 33.2 g/dL (31.0-37.0); MCV 93.4 fL (80.0-100.0); Mean Platelet Volume 9.8; Monocytes # (A) 0.7 k/uL (0-1.0); Monocytes % (A) 8 %; Neutrophils # (A) 6.3 k/uL (1.3-7.7); Neutrophils % (A) 71 %; Platelet Count 224 k/uL (150-450); RBC 5.23 m/uL (4.30-5.90); RDW 12.8 % (11.5-15.5); WBC 8.8 k/uL (3.8-10.6)
[2023-11-26 09:48] LABS: African American GFR (CKD) >90 (>60 ml/min/1.73 sqM); Anion Gap 8 mmol/L; Blood Urea Nitrogen 18 mg/dL (9-20); Calcium 9.5 mg/dL (8.4-10.2); Carbon Dioxide 26 mmol/L (22-30); Chloride 101 mmol/L (98-107); Glucose 354 mg/dL (74-99); Non-African American GFR(CKD) >90 (>60 ml/min/1.73 sqM); Sodium 135 mmol/L (137-145)
[2023-11-26 11:23] LABS: Glucose,Whole Blood 446 mg/dL (70-110)
--- NOTE | 2023-11-26 12:34 | P.PN ---
Subjective Progress Note Date: 11/26/23 Patient was initially seen by Dr. Roshan Sandoval. Please refer to his note for details. Patient presented with right-sided paresthesia and diplopia. Patient's symptoms started on 11/23/2023 at around 6 PM when he noticed sudden onset of visual disturbance with double vision while he was going down steps. He also had worsening of numbness of the right arm to the elbow with tingling. He was also having some neck pain and he felt it was a pinched nerve. He has been having some tingling in the right arm for almost a 1 month. Patient came to ER the next day on , 11/24/2023 at 5:57 PM. He was found to have high blood pressure, and diabetes. Patient was having a lot of neck discomfort, therefore he signed out AMA early childhood on Tuesday at 3 AM. However he returned back to the hospital on Tuesday, which is yesterday at 12:14 PM with worsening symptoms. Patient was not a candidate for tPA as he came outside the window for tPA. Patient believes his symptoms are getting worse. Patient states that his symptoms seems to be slightly getting worse. He has no depth perception, sees double vision, looking to the straightahead and to the right. His vision is misalignment, and 1 is higher than the other. Sometimes he sees in 3D. There is always diplopia. He has never smoked, does not drink alcohol. Patient was diagnosed with prediabetes about 20 years ago. He was recommended to start taking medication for diabetes about 10 years ago but he opted out of it. He has not been seeing doctors except for his cancer doctor. Patient has history of thyroid cancer in 1986 after which he underwent thyroidectomy. He has dysphagia for last few years. Patient also mentions that about last 3 to 4 years he has numerous bouts of vertigo, and some of them lasted for 4 months. He was told that he has "inner ear fluid buildup". He will take Claritin-D and Flonase and symptoms are improved. Still almost half of the nights, he gets some symptoms of vertigo. The symptoms usually are worse in the spring and the fall. The vertigo would occur for 3-4 nights in a row, then gets better for a few nights and comes back. Patient also has history of hyperlipidemia, but it was "mild, and he opted out of treatment. 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 During COVID, he stopped playing [place] almost for a year. When he resumed, he was having problems with fine motor control of his right hand, which over time improved. Objective - Vital Signs Vital signs: Vital Signs Temp 98.1 F 11/26/23 08:00 Pulse 105 H 11/26/23 08:00 Resp 16 11/26/23 08:00 BP 163/91 11/26/23 08:00 Pulse Ox 98 11/26/23 08:00 FiO2 Intake & Output 11/25/23 11/26/23 11/26/23 18:59 06:59 18:59 Intake Total 240 Balance 240 Weight 102.058 kg Intake: Oral 240 - Exam Patient is an elderly male, very pleasant, in no acute distress. Patient is alert awake oriented to time place and person. Speech and language functions are normal. Patient can name and repeat very well. No obvious aphasia or dysarthria, although patient's notices that he is speaking slower than usual, and sometimes he slurred. Attention, concentration and fund of knowledge is adequate. On cranial nerve examination, pupils are equal, round and reacting to light, visual sharif are full on confrontation, with no neglect on double simultaneous stimulation. Patient has diplopia in the primary gaze and looking to the right. Also has diplopia looking in the right upper, right lower quadrant as well as straight up and down. He has no diplopia in the left 3 quadrants. Patient has very mild flattening of the right nasolabial fold. His tongue very minimally protrudes to the right. Palatal elevation and sensation normal, hearing and shoulder shrug normal, facial sensation normal. On muscle strength testing, there is right pronator drift and the strength is normal in arms and legs distally and proximally, except right hip flexion which is about 5-. Sensory to touch is equal in the face in the legs with no neglect on double simultaneous stimulation. In the right upper limb, there is slightly decreased sensation with tingling as compared to the left arm. Cerebellar function showed ataxia for [id number] and [id number] testing only on the right side but not the left. Tone and bulk of muscles normal. Gait deferred. However patient feels his balance is very off partly because of weakness and also because of double vision. On general examination, there is no carotid bruit or murmur, S1-S2 audible. Chest is clear on consultation. Abdomen is soft nontender. No organomegaly, bowel sounds present. Patient has hyperpigmentation of the lower legs. - Labs CBC & Chem 7: 11/26/23 08:22 11/26/23 08:22 Labs: Abnormal Lab Results - Last 24 Hours (Table) 11/25/23 11/25/23 11/25/23 Range/Units 13:06 13:06 14:50 APTT 21.2 L (22.0-30.0) sec Sodium 135 L (137-145) mmol/L Glucose 298 H (74-99) mg/dL POC Glucose (mg/dL) 284 H (70-110) mg/dL Creatine Kinase 43 L (55-170) U/L 11/26/23 11/26/23 Range/Units 08:22 11:20 APTT (22.0-30.0) sec Sodium 135 L (137-145) mmol/L Glucose 354 H (74-99) mg/dL POC Glucose (mg/dL) 446 H (70-110) mg/dL Creatine Kinase (55-170) U/L Assessment and Plan Assessment: This is a 73 y/o gentleman with paresthesia of the right side, gait imbalance, and diplopia since on 11/23/2023. He had newly diagnosed uncontrolled DM (HbA1c 11.3) and hypertension Acute ischemic stroke involving the left meenu with possible more central focus of infarct. Current NIH stroke scale is 6. Left M2 segment stenosis. Hypertensive urgency Newly diagnosed uncontrolled DM (HbA1c 11.3) Hyperlipidemia, mild. Medication noncompliance. History of malignant thyroid cancer, 1986 Plan: MRI of the brain revealed acute/subacute CVA involving the left meenu and possi ble more central focus of infarct also present. Left M2 segment stenosis suggested. For confirmation a CTA head recommended. Scattered nonspecific white matter changes throughout the brain likely secondary to chronic small vessel ischemic disease. I personally reviewed MRI agree with the findings. Check MRA of the brain to evaluate for left MCA stenosis. Patient allergic to CT dye. 2D echo, lipid panel are ordered and pending Carotid Doppler revealed no evidence of hemodynamically significant stenosis. Antegrade flow in both vertebral arteries. HbA1c is 11.3. Recommend optimize control of diabetes to target A1c <7.0. CT cervical showed no evidence of acute spine fracture or malaignement but has mild cervical spondylosis. Patient is started on ASA 325mg daily and Dr. Sandoval also started on Lipitor 40mg qhs for secondary stroke prophylaxis. Patient was not on antiplatelets prior to this. We will start dual antiplatelet medication including Plavix 75 mg daily for 21 days. After 21 days, may stop Plavix and continue aspirin indefinitely, pending results of MRA and clinical response. Patient believes his symptoms are getting worse. Permissive hypertension for 24 to 48 hours, treat unless > 220/120. TSH 3.040 and Vitamin B12 level 218. Patient has low B12, will start B12 replacement. Continue neuro checks Cardiac monitoring. PT, OT and CARDIOTHORACIC PHYSIOTHERAPIST are consulted. Will defer the rest of medical management to primary team. For DVT prophylaxis: Dr. Sandoval started on subq heparin 5000U every 12 hours.
[2023-11-26] MEDS: metFORMIN 850 MG TAB PO SCH (12:35)
[2023-11-26] MEDS: INSULIN ASPART (NovoLOG) 100 UNIT/ML VIAL SQ SCH (12:35)
[2023-11-26] MEDS: CYANOCOBALAMIN 1,000 MCG/ML 1 ML VIAL IM SCH (13:07)
[2023-11-26] MEDS: CLOPIDOGREL 75 MG TAB PO SCH (13:07)
[2023-11-26] MEDS: FAMOTIDINE 20 MG TAB PO SCH (13:07)
[2023-11-26 13:52] LABS: Chol/HDL Ratio 8.37 Ratio
--- NOTE | 2023-11-26 14:22 | CA ---
Transthoracic Echo Report Name: Pancho Mejía Age: 73 Gender: M : 1950 Exam Date: 11/25/2023 15:35 Exam Location: [facility] Ht (in): 68 Wt (lb): 225 Ordering Physician: Sorin Dickerson DO Attending/Referring Phys: Offbearer Arlene Healy RDCS Procedure CPT: Indications: Thrombus Cardiac Hx: Technical Quality: Fair Contrast 1: Agitated Saline Total Dose (mL): 10 Contrast 2: Total Dose (mL): MEASUREMENTS (Male / Female) Normal Values 2D ECHO LV Diastolic Diameter PLAX 4.3 cm 4.2 - 5.9 / 3.9 - 5.3 cm LV Systolic Diameter PLAX 3.1 cm IVS Diastolic Thickness 1.5 cm 0.6 - 1.0 / 0.6 - 0.9 cm LVPW Diastolic Thickness 1.5 cm 0.6 - 1.0 / 0.6 - 0.9 cm LV Relative Wall Thickness 0.7 RV Internal Dim ED PLAX 3.1 cm LA Volume 55.0 cm??? 18 - 58 / 22 - 52 cm??? LA Volume Index 24.5 cm???/m??? 16 - 28 cm???/m??? M-MODE Aortic Root Diameter MM 3.2 cm LA Systolic Diameter MM 4.0 cm LA Ao Ratio MM 1.3 AV Cusp Separation MM 1.4 cm DOPPLER AV Peak Velocity 164.0 cm/s AV Peak Gradient 10.8 mmHg AV Mean Velocity 124.9 cm/s AV Mean Gradient 6.7 mmHg AV Velocity Time Integral 30.4 cm AI Peak Velocity 546.3 cm/s AI Peak Gradient 119.4 mmHg AI Pressure Half Time 399.3 ms LVOT Peak Velocity 90.4 cm/s LVOT Peak Gradient 3.3 mmHg LVOT Velocity Time Integral 18.8 cm MV Area PHT 4.5 cm??? Mitral E Point Velocity 50.1 cm/s Mitral A Point Velocity 99.4 cm/s Mitral E to A Ratio 0.5 MV Deceleration Time 170.1 ms MV E' Velocity 3.6 cm/s Mitral E to MV E' Ratio 14.1 FINDINGS Left Ventricle Moderately increased left ventricular wall thickness. Left ventricular cavity size normal. Normal left ventricular systolic function with no obvious regional wall motion abnormalities. Left ventricular ejection fraction is estimated at 55-60 %. Grade 1 diastolic dysfunction. Right Ventricle Normal right ventricular size and function. Right ventricular systolic pressure within normal limits. Right Atrium Normal right atrial size. Negative agitated saline bubble study for right to left shunt. Left Atrium Normal left atrial size. Mitral Valve Structurally normal mitral valve. No mitral stenosis, regurgitation or prolapse. Mild mitral annular calcification. Aortic Valve Trileaflet aortic valve. No aortic stenosis. Mild aortic regurgitation. Tricuspid Valve Structurally normal tricuspid valve. Mild tricuspid regurgitation. Pulmonic Valve Structurally normal pulmonic valve. Trace pulmonic regurgitation. Pericardium No pericardial effusion. Aorta Normal size aortic root and proximal ascending aorta. CONCLUSIONS Mild LVH with preserved systolic function Previewed by: Dr. Christofer Castaneda MD (Electronically Signed) Final Date: 26 November 2023 14:21
--- NOTE | 2023-11-26 14:35 | MR ---
EXAMINATION TYPE: MR angio head wo con DATE OF EXAM: 11/26/2023 1:55 PM CLINICAL INDICATION:Male, 73 years old with history of Left MCA stenosis; PHH, Paresthesia and diplop ia, left MCA stenosis. COMPARISON: MRI 11/25/2023 Technical: 3-D [id number] Axial with MIP reconstruction created on a separate workstation.. IV Contrast: None Findings: Vertebral arteries: The vertebral arteries are patent. Vertebral arteries are: Codominant. Basilar artery: The basilar artery is intact. The basilar artery bifurcation is normal. Internal Carotid arteries: The cervical, petrous, cavernous and supraclinoid segments are normal. LITA: Hypoplastic left A1 segment and normal right. Patent with no evidence of aneurysm. ACOM: Present without evidence of aneurysm. MCA: There remains mild narrowing with at least 25-50% caliber change of the M2 segment just past its origin. Patent with no evidence of aneurysm. CLINICAL RESEARCH ANALYST: Patent with no evidence of aneurysm. PCOM: Hypoplastic bilaterally. IMPRESSION: * No evidence of aneurysm. * Focal narrowing in the area of concern in the left MCA M2 segment The area of concern in the left MCA appears patent. There is up to 25-50% caliber change noted. No additional areas of occlusion or h igh-grade stenosis to definitively visualized.
--- NOTE | 2023-11-26 15:11 | P.PN ---
Subjective Progress Note Date: 11/26/23 73-year-old male presenting to the emergency department with concern for neurological problems. Onset of symptoms was yesterday evening. Patient left early this morning because the bed was not comfortable. Patient is having continued symptoms however and decided to return. Patient is feeling off gael nce and having difficulty with walking. Patient has right arm paresthesia. Patient also has double vision. Patient does not feel like his left eye is working in coordination with his right eye. States that around 6 PM last night he began having sudden onset of balance issues and visual disturbance. States he feels as if his left eye is not working together with his right eye. It is making him feel off balance and as if he does not have spatial perception. He reports he almost fell because of it. He is also reporting paresthesias in his right arm and some paresthesias in his right leg. Patient went to sleep thinking that his symptoms would go away. He denies history of stroke. He previously was told that he was a diabetic however with weight loss and diet changes he did not require any medications. States he has not followed with a primary care doctor in several years. He does arrive hypertensive. Denies history of hypertension. He denies headaches. He does admit to some right-sided neck pain which is chronic since his surgery. He denies any weakness in his extremities. No other alleviating, precipitating or modifying factors EKG reveals sinus rhythm with frequent PVCs Bilateral carotid Doppler was completed and does not reveal any evidence for hemodynamically significant stenosis CT of the head and cervical spine was completed which reveals mild to moderate atrophy and chronic microvascular ischemic changes of the brain; CT cervical spine reveals mild cervical spondylosis Blood work reveals WBC of 7.9, hemoglobin of 15.8 and platelet count of 212, sodium 135, potassium 4.2, BUNs/creatinine of 15/0.73 and blood glucose of 298 -- MRI of the brain is completed and reveals acute/subacute CVA left meenu along with left M2 stenosis -- CT is ordered and pending Objective - Vital Signs Vital signs: Vital Signs Temp 98.1 F 11/26/23 06:45 Pulse 91 11/26/23 06:45 Resp 16 11/26/23 06:45 BP 185/100 11/26/23 06:45 Pulse Ox 97 11/26/23 06:45 FiO2 Intake & Output 11/25/23 11/26/2324 18:59 06:59 18:59 Intake Total 240 Balance 240 Weight 102.058 kg Intake: Oral 240 - Exam General appearance: alert, in no apparent distress Head exam: Present: normocephalic Eye exam: Present: normal appearance, PERRL, EOMI Neck exam: Present: normal inspection Respiratory exam: Present: normal lung sounds bilaterally Cardiovascular Exam: Present: regular rate, normal rhythm GI/Abdominal exam: Present: soft. Absent: tenderness Extremities exam: Present: normal inspection. Absent: pedal edema, calf ten derness Neurological exam: Present: alert, oriented X3, CN II-XII intact. Absent: motor sensory deficit Psychiatric exam: Present: normal affect, normal mood Skin exam: Present: normal color - Labs CBC & Chem 7: 11/26/23 08:22 11/26/23 08:22 Labs: Abnormal Lab Results - Last 24 Hours (Table) 11/25/23 11/25/23 11/25/23 Range/Units 13:06 13:06 14:50 APTT 21.2 L (22.0-30.0) sec Sodium 135 L (137-145) mmol/L Glucose 298 H (74-99) mg/dL POC Glucose (mg/dL) 284 H (70-110) mg/dL Creatine Kinase 43 L (55-170) U/L 11/26/23 Range/Units 08:22 APTT (22.0-30.0) sec Sodium 135 L (137-145) mmol/L Glucose 354 H (74-99) mg/dL POC Glucose (mg/dL) (70-110) mg/dL Creatine Kinase (55-170) U/L Assessment and Plan Assessment: 1. Paresthesia right upper extremity --Workup completed in ED including CT of the head and carotid Doppler has been unremarkable -- Patient will be admitted to telemetry; we will monitor neurochecks per protocol -- Consult neurology for further 2. Hyperglycemia; no history of diabetes mellitus/new onset diabetes mellitus; patient received 5 units of short acting insulin subcu in ED; will monitor Accu- Cheks before every meal and at bedtime with insulin sliding scale -- Will start patient on metformin 850 mg twice daily; continue to monitor Accu- Cheks closely and make further adjustments as needed 3. Hypothyroidism; levothyroxine 137 mcg daily 4. Hypertensive urgency/uncontrolled hypertension; blood pressure remains markedly elevated; will hold off on treatment for another 24 hours for permissive hypertension DVT prophylaxis; SCDs CODE STATUS; full code
[2023-11-26] MEDS: LEVOTHYROXINE 137 MCG TAB PO SCH (15:40)
[2023-11-26 16:32] LABS: Glucose,Whole Blood 228 mg/dL (70-110)
[2023-11-26 19:52] LABS: Glucose,Whole Blood 344 mg/dL (70-110)
[2023-11-27 05:51] LABS: Glucose,Whole Blood 248 mg/dL (70-110)
[2023-11-27 10:44] LABS: African American GFR (CKD) >90 (>60 ml/min/1.73 sqM); Anion Gap 9 mmol/L; Blood Urea Nitrogen 18 mg/dL (9-20); Calcium 9.2 mg/dL (8.4-10.2); Carbon Dioxide 22 mmol/L (22-30); Chloride 105 mmol/L (98-107); Glucose 249 mg/dL (74-99); Non-African American GFR(CKD) 90 (>60 ml/min/1.73 sqM); Potassium 3.7 mmol/L (3.5-5.1); Sodium 136 mmol/L (137-145)
[2023-11-27] MEDS: INSULIN DETEMIR (LEVEMIR) 100 UNIT/ML SYR SQ SCH (10:57)
[2023-11-27] MEDS: lisinopriL 5 MG TAB PO SCH (10:57)
[2023-11-27 11:10] LABS: Glucose,Whole Blood 360 mg/dL (70-110)
--- NOTE | 2023-11-27 15:48 | P.PN ---
Subjective Progress Note Date: 11/27/23 73-year-old male presenting to the emergency department with concern for neurological problems. Onset of symptoms was yesterday evening. Patient left early this morning because the bed was not comfortable. Patient is having continued symptoms however and decided to return. Patient is feeling off gael nce and having difficulty with walking. Patient has right arm paresthesia. Patient also has double vision. Patient does not feel like his left eye is working in coordination with his right eye. States that around 6 PM last night he began having sudden onset of balance issues and visual disturbance. States he feels as if his left eye is not working together with his right eye. It is making him feel off balance and as if he does not have spatial perception. He reports he almost fell because of it. He is also reporting paresthesias in his right arm and some paresthesias in his right leg. Patient went to sleep thinking that his symptoms would go away. He denies history of stroke. He previously was told that he was a diabetic however with weight loss and diet changes he did not require any medications. States he has not followed with a primary care doctor in several years. He does arrive hypertensive. Denies history of hypertension. He denies headaches. He does admit to some right-sided neck pain which is chronic since his surgery. He denies any weakness in his extremities. No other alleviating, precipitating or modifying factors EKG reveals sinus rhythm with frequent PVCs Bilateral carotid Doppler was completed and does not reveal any evidence for hemodynamically significant stenosis CT of the head and cervical spine was completed which reveals mild to moderate atrophy and chronic microvascular ischemic changes of the brain; CT cervical spine reveals mild cervical spondylosis Blood work reveals WBC of 7.9, hemoglobin of 15.8 and platelet count of 212, sodium 135, potassium 4.2, BUNs/creatinine of 15/0.73 and blood glucose of 298 11/27/2023 Patient is seen and evaluated sitting up in bedside chair; is present in the room; all of patient's and family's questions were answered in great detail Vital signs are reviewed and blood pressure remains elevated; has not been treated for permissive hypertension -- Will start patient on lisinopril 5 mg daily and adjust dosage according to response -- Blood glucose remains elevated; patient is currently eating fast food; reports he did eat his lunch a little while ago; counseling done on following a consistent carbohydrate diet -Patient is currently on metformin 850 mg twice daily; we will add Levemir 20 units SQ every morning while inpatient; recommend starting patient on GLP-1 once ready for discharge --Echocardiogram reveals LVEF of 55 to 60% with grade 1 diastolic dysfunction -- MRI of the brain is completed and reveals acute/subacute CVA left meenu along with left M2 stenosis; patient has been placed on DAPT with aspirin and Plavix; Plavix will be discontinued after 21-day of therapy; patient will continue with aspirin indefinitely -- Remains on vitamin B12 supplement 1000 mcg/day Awaits PT/OT/MARINE 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 evaluation Objective - Vital Signs Vital signs: Vital Signs Temp 98.3 F 11/26/23 20:00 Pulse 88 11/27/23 04:00 Resp 16 11/27/23 04:00 BP 182/108 11/27/23 04:00 Pulse Ox 99 11/27/23 04:00 FiO2 Intake & Output 11/26/23 11/27/23 11/27/23 18:59 06:59 18:59 Intake Total 240 540 240 Output Total 450 Balance 240 90 240 Weight 102.058 kg Intake: Oral 240 540 240 Output: Urine 450 Other: Voiding Method Toilet # Voids 1 2 # Bowel Movements 1 - Exam General appearance: alert, in no apparent distress Head exam: Present: normocephalic Eye exam: Present: normal appearance, PERRL, EOMI Neck exam: Present: normal inspection Respiratory exam: Present: normal lung sounds bilaterally Cardiovascular Exam: Present: regular rate, normal rhythm GI/Abdominal exam: Present: soft. Absent: tenderness Extremities exam: Present: normal inspection. Absent: pedal edema, calf tenderness Neurological exam: Present: alert, oriented X3, CN II-XII intact. Absent: motor sensory deficit Psychiatric exam: Present: normal affect, normal mood Skin exam: Present: normal color - Labs CBC & Chem 7: 11/26/23 08:22 11/27/23 08:48 Labs: Abnormal Lab Results - Last 24 Hours (Table) 11/26/23 11/26/23 11/26/23 Range/Units 08:22 11:20 16:30 Sodium 135 L (137-145) mmol/L Glucose 354 H (74-99) mg/dL POC Glucose (mg/dL) 446 H 228 H (70-110) mg/dL Triglycerides 475.00 H (0.00-149.00) mg/dL Cholesterol 282.00 H (0.00-200.00) mg/dL LDL Cholesterol Direct 186.00 H (0.00-129.00) mg/dL VLDL Cholesterol, Calc 95.00 H (5.00-40.00) mg/dL HDL Cholesterol 33.70 L (40.00-60.00) mg/dL 11/26/23 11/27/23 Range/Units 19:48 05:49 Sodium (137-145) mmol/L Glucose (74-99) mg/dL POC Glucose (mg/dL) 344 H 248 H (70-110) mg/dL Triglycerides (0.00-149.00) mg/dL Cholesterol (0.00-200.00) mg/dL LDL Cholesterol Direct (0.00-129.00) mg/dL VLDL Cholesterol, Calc (5.00-40.00) mg/dL HDL Cholesterol (40.00-60.00) mg/dL Assessment and Plan Assessment: 1. Paresthesia right upper extremity --Workup completed in ED including CT of the head and carotid Doppler has been unremarkable -- Patient will be admitted to telemetry; we will monitor neurochecks per protocol -- Consult neurology for further 2. Hyperglycemia; no history of diabetes mellitus/new onset diabetes mellitus; patient received 5 units of short acting insulin subcu in ED; will monitor Accu- Cheks before every meal and at bedtime with insulin sliding scale -- Will start patient on metformin 850 mg twice daily; continue to monitor Accu- Cheks closely and make further adjustments as needed 3. Hypothyroidism; levothyroxine 137 mcg daily 4. Hypertensive urgency/uncontrolled hypertension; blood pressure remains markedly elevated; will hold off on treatment for another 24 hours for permissive hypertension DVT prophylaxis; SCDs CODE STATUS; full code
[2023-11-27 16:27] LABS: Glucose,Whole Blood 268 mg/dL (70-110)
[2023-11-27] MEDS: ATORVASTATIN 80 MG TAB PO SCH (20:06)
[2023-11-27 20:20] LABS: Glucose,Whole Blood 258 mg/dL (70-110)
[2023-11-27] MEDS ORDERED: ACETAMINOPHEN TAB 325 MG TAB PO PRN (20:55)
--- NOTE | 2023-11-27 21:31 | XR ---
EXAMINATION TYPE: XR knee complete RT DATE OF EXAM: 11/27/2023 9:24 PM CLINICAL INDICATION:Male, 73 years old with history of fall in [place] 11/25; [facility] COMPARISON: None. TECHNIQUE: XR knee complete RT; examined in Frontal, lateral and oblique projections. FINDINGS: No evidence of any acute osseous pathology, soft tissue swelling, or joint effusion is no len. Tricompartmental osteophyte formation involving the femoral condyles, tibial plateau and patella . Mild joint space narrowing. A fabella is present. There is enthesophyte formation of patella and ti bial tuberosity. IMPRESSION: 1. No acute osseous pathology. 2. 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
[2023-11-27 23:20] VITALS: RESP 18
[2023-11-28 06:15] LABS: Glucose,Whole Blood 247 mg/dL (70-110)
[2023-11-28 11:37] LABS: Glucose,Whole Blood 299 mg/dL (70-110)
--- NOTE | 2023-11-28 13:37 | P.PN ---
Subjective Progress Note Date: 11/27/23 11/27/2023: Patient was seen for a follow-up. Patient's was also present. Patient's legs are getting better. Today he was able to stand with help although yesterday he was just tipping over. He still has numbness and tingling of the right hand but not in the forearm. He is dropping things with his right hand, because when he picks up a fork, or a glass, he drops it. Overall sympto ms are better. No new concerns. 11/26/2023: Patient was initially seen by Dr. Roshan Sandoval. Please refer to his note for details. Patient presented with right-sided paresthesia and diplopia. Patient's symptoms started on 11/23/2023 at around 6 PM when he noticed sudden onset of visual disturbance with double vision while he was going down steps. He also had worsening of numbness of the right arm to the elbow with tingling. He was also having some neck pain and he felt it was a pinched nerve. He has been having some tingling in the right arm for almost a 1 month. Patient came to ER the next day on , 11/24/2023 at 5:57 PM. He was found to have high blood pressure, and diabetes. 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 However he returned back to the hospital on Tuesday, which is yesterday at 12:14 PM with worsening symptoms. Patient was not a candidate for tPA as he came outside the window for tPA. Patient believes his symptoms are getting worse. Patient states that his symptoms seems to be slightly getting worse. He has no depth perception, sees double vision, looking to the straightahead and to the right. His vision is misalignment, and 1 is higher than the other. Sometimes he sees in 3D. There is always diplopia. He has never smoked, does not drink alcohol. Patient was diagnosed with prediabetes about 20 years ago. He was recommended to start taking medication for diabetes about 10 years ago but he opted out of it. He has not been seeing doctors except for his cancer doctor. Patient has history of thyroid cancer in 1986 after which he underwent thyroidectomy. He has dysphagia for last few years. Patient also mentions that about last 3 to 4 years he has numerous bouts of vertigo, and some of them lasted for 4 months. He was told that he has "inner ear fluid buildup". He will take Claritin-D and Flonase and symptoms are improved. Still almost half of the nights, he gets some symptoms of vertigo. The symptoms usually are worse in the spring and the fall. The vertigo would occur for 3-4 nights in a row, then gets better for a few nights and comes back. Patient also has history of hyperlipidemia, but it was "mild, and he opted out of treatment. 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 During COVID, he stopped playing [place] almost for a year. When he resumed, he was having problems with fine motor control of his right hand, which over time improved. Objective - Vital Signs Vital signs: Vital Signs Temp 98.4 F 11/27/23 13:43 Pulse 102 H 11/27/23 14:00 Resp 16 11/27/23 14:00 BP 155/89 11/27/23 13:43 Pulse Ox 96 11/27/23 13:43 FiO2 Intake & Output 11/26/23 11/27/23 11/27/23 18:59 06:59 18:59 Intake Total 240 540 480 Output Total 450 Balance 240 90 480 Weight 102.058 kg Intake: Oral 240 540 480 Output: Urine 450 Other: Voiding Method Toilet Toilet # Voids 1 2 1 # Bowel Movements 1 - Exam Patient is an elderly male, very pleasant, in no acute distress. Patient is alert awake oriented to time place and person. Speech and language functions are normal. Patient can name and repeat very well. No obvious aphasia or dysarthria, although patient's notices that he is speaking slower than usual, and sometimes he slurred. Attention, concentration and fund of knowledge is adequate. On cranial nerve examination, pupils are equal, round and reacting to light, visual sharif are full on confrontation, with no neglect on double simultaneous stimulation. Patient has diplopia in the primary gaze and looking to the right. Also has diplopia looking in the right upper, right lower quadrant as well as straight up and down. He has no diplopia in the left 3 quadrants. Patient has very mild flattening of the right nasolabial fold. His tongue very minimally protrudes to the right. Palatal elevation and sensation normal, hearing and shoulder shrug normal, facial sensation normal. On muscle strength testing, there is no pronator drift and the strength is normal in arms and legs distally and proximally, except right hip flexion which is about 5-. Sensory to touch is equal in the face in the legs with no neglect on double simultaneous stimulation. In the right upper limb, there is slightly decreased sensation with tingling as compared to the left arm. Cerebellar function showed significant ataxia for ekeclv-he-sptk and bzvx-[id number] testing only on the right side but not the left. Tone and bulk of muscles normal. Gait deferred. However patient feels his balance is very off partly because of weakness and also because of double vision. On general examination, there is no carotid bruit or murmur, S1-S2 audible. Chest is clear on consultation. Abdomen is soft nontender. No organomegaly, bowel sounds present. Patient has hyperpigmentation of the lower legs. - Labs CBC & Chem 7: 11/26/23 08:22 11/27/23 08:48 Labs: Abnormal Lab Results - Last 24 Hours (Table) 11/26/23 11/27/23 11/27/23 Range/Units 19:48 05:49 08:48 Sodium 136 L (137-145) mmol/L Glucose 249 H (74-99) mg/dL POC Glucose (mg/dL) 344 H 248 H (70-110) mg/dL 11/27/23 11/27/23 Range/Units 11:08 16:22 Sodium (137-145) mmol/L Glucose (74-99) mg/dL POC Glucose (mg/dL) 360 H 268 H (70-110) mg/dL Assessment and Plan Assessment: This is a 73 y/o gentleman with paresthesia of the right side, gait imbalance, and diplopia since on 11/23/2023. He had newly diagnosed uncontrolled DM (HbA1c 11.3) and hypertension Acute ischemic stroke involving the left meenu with possible more central focus of infarct. Current NIH stroke scale is 6. Left M2 segment stenosis. Hypertensive urgency Newly diagnosed uncontrolled DM (HbA1c 11.3) Hyperlipidemia, mild. Medication noncompliance. History of malignant thyroid cancer, 1986 Plan: MRI of the brain revealed acute/subacute CVA involving the left meenu and possible more central focus of infarct also present. Left M2 segment stenosis suggested. For confirmation a CTA head recommended. Scattered nonspecific white matter changes throughout the brain likely secondary to chronic small vessel ischemic disease. I personally reviewed MRI agree with the findings. MRA of the brain: Revealed no evidence of aneurysm. Focal narrowing in the area of concern in the left MCA M2 segment: The area of concern in the left MCA appears patent. There is up to 25 to 50% caliber change noted. No additional areas of occlusion or high-grade stenosis to definitively visualized. I personally reviewed MRI agree with the findings. 2D echo: Revealed moderately increased left ventricular wall thickness. Left ventricular cavity size normal. LVEF is normal 55 to 60%. Grade 1 diastolic dysfunction. No obvious regional wall motion abnormalities. Normal left atrial size. Negative agitated saline bubble study for [id number] shunt. Lipid panel cholesterol 282, LDL 186, HDL 33, triglycerides 475. We will increase Lipitor from 40 up to 80 mg daily. Carotid Doppler revealed no evidence of hemodynamically significant stenosis. Antegrade flow in both vertebral arteries. HbA1c is 11.3. Recommend optimize control of diabetes to target A1c <7.0. CT cervical showed no evidence of acute spine fracture or malaignement but has mild cervical spondylosis. Patient is started on ASA 325mg daily and Dr. Sandoval also started on Lipitor 40mg qhs for secondary stroke prophylaxis. Patient was not on antiplatelets prior to this. Continue aspirin 81 mg and Plavix 75 mg because of multiple vascular risk factors. Optimize control of blood pressure gradually to normotensive level. TSH 3.040 and Vitamin B12 level 218. Patient has low B12, will start B12 replacement. Continue neuro checks Cardiac monitoring. PT, OT and VP OF CUSTOMER EXPERIENCE STRATEGY are consulted. Will defer the rest of medical management to primary team. For DVT prophylaxis: Dr. Sandoval started on subq heparin 5000U every 12 hours. Suggest consultation with physical medicine and rehab.
[2023-11-28] MEDS: PANTOPRAZOLE 40 MG TABLET PO SCH (14:38)
--- NOTE | 2023-11-28 16:06 | P.PAINCN ---
History of Present Illness - Reason for Consult Consult date: 11/28/23 Rehab Needs - Chief Complaint Right sided numbness - History of Present Illness PMR Consult Mr. Mejía is a pleasant 73 yo , right handed gentleman who lives in a 2 story home with his with 4-5 CARMEN. Master bedroom is on main floor, but bathroom is on 2nd floor. 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 He has 2 adult children from a previous marriage, and his has 2 adult children from her's, but they are not around to help. His symptoms started on 11/23/2023 at around 6 PM when he noticed sudden onset of visual disturbance with double vision while he was going down steps. He also had worsening of numbness of the right arm to the elbow with tingling. He was also having some neck pain and he felt it was a pinched nerve. He notes was having some tingling in the right arm for almost a 1 month. Patient came to ER the next day on , 11/24/2023 and found to have high blood pressure. 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 However he returned back to the hospital on Tuesday, with worsening symptoms. He was not a candidate for tPA as he came outside the window for tPA. He feels his symptoms seems to be slightly getting worse. He has no depth perception, sees double vision, looking to the straightahead and to the right. His vision is misalignment, and sometimes he s"ees in 3D." There is always diplopia. Imaging documented an acute/subacute left meenu infarct. He continues to have diplopia, numbness on his right side, and difficulty walking secondary to vision and balance issues. MRI of the brain revealed acute/subacute CVA involving the left meenu and possible more central focus of infarct also present. Left M2 segment stenosis suggested. For confirmation a CTA head recommended. Scattered nonspecific white matter changes throughout the brain likely secondary to chronic small vessel ischemic disease. I personally reviewed MRI agree with the findings. MRA of the brain: Revealed no evidence of aneurysm. Focal narrowing in the area of concern in the left MCA M2 segment: The area of concern in the left MCA appears patent. There is up to 25 to 50% caliber change noted. No additional areas of occlusion or high-grade stenosis to definitively visualized. I personally reviewed MRI agree with the findings. 2D echo: Revealed moderately increased left ventricular wall thickness. Left ventricular cavity size normal. LVEF is normal 55 to 60%. Grade 1 diastolic dysfunction. No obvious regional wall motion abnormalities. Normal left atrial size. Negative agitated saline bubble study for [id number] shunt. Lipid panel cholesterol 282, LDL 186, HDL 33, triglycerides 475. We will increase Lipitor from 40 up to 80 mg daily. Carotid Doppler revealed no evidence of hemodynamically significant stenosis. Antegrade flow in both vertebral arteries. HbA1c is 11.3. Recommend optimize control of diabetes to target A1c <7.0. CT cervical showed no evidence of acute spine fracture or malaignement but has mild cervical spondylosis. He is having pain in his right hand, lightheaded, tired. Denies BRYANT, CP, SOB or abdominal pain. With therapies earlier today he was min A for transfers, ambulation with RW, bathing, toileting and LE ADL Review of Systems + per above, o/w all systems reviewed negative. Past Medical History Past Medical History: Cancer, Thyroid Disorder Additional Past Medical History / Comment(s): thyroid cancer History of Any Multi-Drug Resistant Organisms: None Reported Past Surgical History: Orthopedic Surgery Additional Past Surgical History / Comment(s): thyroidectomy Past Psychological History: No Psychological Hx Reported Smoking Status: Never smoker Past Alcohol Use History: None Reported Past Drug Use History: None Reported - Past Family History Father Family Medical History: Diabetes Mellitus Medications and Allergies Home Medications Medication Instructions Recorded Confirmed Type Ibuprofen [Motrin Ib] 200 mg PO Q8H PRN 11/24/23 11/25/23 History Levothyroxine Sodium 137 mcg PO DAILY@1400 11/24/23 11/25/23 History Allergies Allergy/AdvReac Type Severity Reaction Status Date / Time Iodinated Contrast Media Allergy Anaphylaxis Verified 11/25/23 14:58 shellfish derived Allergy Anaphylaxis Verified 11/25/23 14:58 Tetanus Vaccines and Toxoid Allergy Anaphylaxis Verified 11/25/23 14:58 Physical Exam Vitals: Vital Signs Temp Pulse Resp BP BP Pulse Ox 11/28/23 12:10 97.9 F 95 18 167/95 97 11/28/23 08:46 97.4 F L 110 H 18 164/99 97 11/28/23 08:45 110 H 11/28/23 04:00 98 F 100 18 163/95 95 11/28/23 02:00 98 18 11/28/23 00:00 97.9 F 98 18 153/88 96 11/27/23 20:00 97.9 F 94 18 149/79 94 L 11/27/23 16:00 98 138/76 95 Intake and Output 11/28/23 11/28/23 11/28/23 06:59 14:59 22:59 Intake Total 500 Balance 500 Intake: Oral 500 Other: Voiding Method Toilet # Voids 2 1 # Bowel Movements 1 0 Gen: NAD,pleasant alert & oriented x4 Head: atraumatic CV: regular rate Lungs: non-labored respirations Abd: soft, Non-tender Neuro: CN 2-12 with discordant eye tracking and decreased sensation right face MMT 4+/5 Right UE/LE, 5/5 Left UE/LE Sensation light touch decreased right UE/LE diffusely DTR 1+ UE/LE Finger to nose with dysmetria on right, heel to sigala slightly decreased right compared to left Ext: No significant LE edema, no calf TTP. Results CBC & Chem 7: 11/26/23 08:22 11/27/23 08:48 Labs: Abnormal Lab Results - Last 24 Hours (Table) 11/27/23 11/27/23 11/28/23 Range/Units 16:22 20:20 06:14 POC Glucose (mg/dL) 268 H 258 H 247 H (70-110) mg/dL 11/28/23 Range/Units 11:35 POC Glucose (mg/dL) 299 H (70-110) mg/dL Assessment and Plan Assessment: # Acute ischemic stroke involving the left meenu with possible more central focus of infarct. # Left M2 segment stenosis. - continue therapies; min A per notes today. #Hypertensive urgency #Newly diagnosed uncontrolled DM (HbA1c 11.3) #Hyperlipidemia, mild. # History of malignant thyroid cancer, 1986 Recommendations: - per your medical management - continue therapies Recommend IPR for short stay of 7-10 days. PQRS Measure Charge Sheet - Pain Location Right Knee Non-Pharmacological Interventions: Darkened Room, Distraction, Emotional/Spiritual Support Pharmacological Interventions: PRN Medication Pain Comment: patient fell to knees in [place] on 11/26/23. Patient complaining of increased pain in right knee. Xray ordered by Dr. Salinas, PRN medication available, pt refused to take at this time. PQRS Narrative: Blood Pressure [Right Arm] 163/95 Blood Pressure [Left Arm] 167/95 Blood Pressure 149/94 Pain Intensity [Right Knee] 0 Pain Intensity [None] 0 Pain Intensity 0 Scale Used Numeric (1 - 10) Home Medications: Ambulatory Orders Ibuprofen [Motrin Ib] 200 mg PO Q8H PRN 11/24/23 Levothyroxine Sodium 137 mcg PO DAILY@1400 11/24/23
[2023-11-28 16:31] LABS: Glucose,Whole Blood 232 mg/dL (70-110)
[2023-11-28 20:09] LABS: Glucose,Whole Blood 199 mg/dL (70-110)
[2023-11-29 06:04] LABS: Glucose,Whole Blood 309 mg/dL (70-110)
[2023-11-29] MEDS: INSULIN DETEMIR (LEVEMIR) 100 UNIT/ML SYR SQ SCH (06:14)
--- NOTE | 2023-11-29 07:39 | PN ---
PROGRESS NOTE DATE OF SERVICE: 11/28/2023 SUBJECTIVE: This is a 73-year-old gentleman, who was admitted with significant weakness on the right side, also complains of diplopia. The MRA showed acute subacute CVA of the left meenu along with left M2 stenosis. The patient is closely monitored at this time. PAST MEDICAL HISTORY: Reviewed. REVIEW OF SYSTEMS: A 14-point review of systems is negative except as mentioned. CURRENT MEDICATIONS: Reviewed include Plavix, doses and rest of meds noted. OBJECTIVE: VITAL SIGNS: Pulse is 95, blood pressure 160/94, and respirations 18. CHEST: Few scattered rhonchi and crackles. ABDOMEN: Soft, nontender. LEGS: No edema. NERVOUS SYSTEM: Minimal right-sided weakness as well as eye abnormalities also present, especially on the left side. LABORATORY DATA: Glucose is elevated. ASSESSMENT: 1. Acute CVA with pontine infarct, left. 2. Diplopia. 3. Diabetes mellitus, type 2, uncontrolled. 4. Hypothyroidism. 5. Hypertension. RECOMMENDATIONS AND DISCUSSION: This 73-year-old gentleman presented with multiple complex medical issues, we will monitor the patient closely. Continue with the current management, continue symptomatic treatment. We will increase the dose of Lantus and continue with antiplatelet agents and hyperlipidemic agents. Continue to monitor, PT, OT evaluation. We will cut down the IV fluids. Prognosis guarded. Monitor blood pressure closely. Further recommendations to follow. See orders for details. MMKASANDRAL / IJN: [id number] /
[2023-11-29 09:28] VITALS: BP 164/92; PULSE 103; TEMP 98.4
[2023-11-29 10:29] LABS: Basophils # (A) 0.1 k/uL (0-0.2); Basophils % (A) 1 %; Eosinophils # (A) 0.4 k/uL (0-0.7); Eosinophils % (A) 4 %; HCT 45.7 % (39.0-53.0); HGB 15.5 gm/dL (13.0-17.5); Lymphocytes # (A) 1.8 k/uL (1.0-4.8); Lymphocytes % (A) 19 %; MCH 31.5 pg (25.0-35.0); MCHC 33.9 g/dL (31.0-37.0); Mean Platelet Volume 8.8; Monocytes % (A) 10 %; Neutrophils # (A) 6.1 k/uL (1.3-7.7); Neutrophils % (A) 63 %; Platelet Count 210 k/uL (150-450); RBC 4.92 m/uL (4.30-5.90); RDW 12.9 % (11.5-15.5); WBC 9.7 k/uL (3.8-10.6)
[2023-11-29 10:36] LABS: African American GFR (CKD) >90 (>60 ml/min/1.73 sqM); Anion Gap 8 mmol/L; Blood Urea Nitrogen 18 mg/dL (9-20); Calcium 9.8 mg/dL (8.4-10.2); Carbon Dioxide 23 mmol/L (22-30); Chloride 105 mmol/L (98-107); Glucose 246 mg/dL (74-99); Non-African American GFR(CKD) 84 (>60 ml/min/1.73 sqM); Sodium 136 mmol/L (137-145)
--- NOTE | 2023-11-29 10:58 | P.PN ---
Subjective Progress Note Date: 11/28/23 11/28/2023: Patient was seen for a follow-up. Patient's was also present. Patient states that he feels good, denies any headache. He was noticing some pain in the right hand in the palm region around the knuckles. He said he used the bathroom with a walker with no incidents. PT OT also came for evaluation. His diplopia is better, about half-way better. If the images were 1 foot apart, now are 6 inch apart. Patient states that he did slip going to the bathroom couple days ago, twisted his hip and hurt his right knee. X-ray showed no fracture. . 11/27/2023: Patient was seen for a follow-up. Patient's was also present. Patient's legs are getting better. Today he was able to stand with help although yesterday he was just tipping over. He still has numbness and tingling of the right hand but not in the forearm. He is dropping things with his right hand, because when he picks up a fork, or a glass, he drops it. Overall symptoms are better. No new concerns. 11/26/2023: Patient was initially seen by Dr. Roshan Sandoval. Please refer to his note for details. Patient presented with right-sided paresthesia and diplopia. Patient's symptoms started on 11/23/2023 at around 6 PM when he noticed sudden onset of visual disturbance with double vision while he was going down steps. He also had worsening of numbness of the right arm to the elbow with tingling. He was also having some neck pain and he felt it was a pinched nerve. He has been having some tingling in the right arm for almost a 1 month. Patient came to ER the next day on , 11/24/2023 at 5:57 PM. He was found to have high blood pressure, and diabetes. Patient was having a lot of neck discomfort, therefore he signed out AMA um specialist on Tuesday at 3 AM. However he returned back to the hospital on Tuesday, which is yesterday at 12:14 PM with worsening symptoms. Patient was not a candidate for tPA as he came outside the window for tPA. Patient believes his symptoms are getting worse. Patient states that his symptoms seems to be slightly getting worse. He has no depth perception, sees double vision, looking to the straightahead and to the right. His vision is misalignment, and 1 is higher than the other. Sometimes he sees in 3D. There is always diplopia. He has never smoked, does not drink alcohol. Patient was diagnosed with prediabetes about 20 years ago. He was recommended to start taking medication for diabetes about 10 years ago but he opted out of it. He has not been seeing doctors except for his cancer doctor. Patient has history of thyroid cancer in 1986 after which he underwent thyroidectomy. He has dysphagia for last few years. Patient also mentions that about last 3 to 4 years he has numerous bouts of vertigo, and some of them lasted for 4 months. He was told that he has "inner ear fluid buildup". He will take Claritin-D and Flonase and symptoms are improved. Still almost half of the nights, he gets some symptoms of vertigo. The symptoms usually are worse in the spring and the fall. The vertigo would occur for 3-4 nights in a row, then gets better for a few nights and comes back. Patient also has history of hyperlipidemia, but it was "mild, and he opted out of treatment. 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 During COV, he stopped playing [place] almost for a year. When he resumed, he was having problems with fine motor control of his right hand, which over time improved. Objective - Vital Signs Vital signs: Vital Signs Temp 97.8 F 11/28/23 16:40 Pulse 91 11/28/23 16:40 Resp 18 11/28/23 16:40 BP 162/93 11/28/23 16:40 Pulse Ox 96 11/28/23 16:40 FiO2 Intake & Output 11/27/23 11/28/23 11/28/23 18:59 06:59 18:59 Intake Total 720 500 Balance 720 500 Intake: Oral 720 500 Other: Voiding Method Toilet Toilet # Voids 2 2 1 # Bowel Movements 1 0 - Exam Patient is an elderly male, very pleasant, in no acute distress. Patient is alert awake oriented to time place and person. Speech and language functions are normal. Patient can name and repeat very well. No obvious aphasia or dysarthria, although patient's notices that he is speaking slower than usual, and sometimes he slurred. Attention, concentration and fund of knowledge is adequate. On cranial nerve examination, pupils are equal, round and reacting to light, visual sharif are full on confrontation, with no neglect on double simultaneous stimulation. Patient has diplopia in the primary gaze and looking to the right. Also has diplopia looking in the right upper, right lower quadrant as well as straight up and down. He has no diplopia in the left 3 quadrants. Patient has very mild flattening of the right nasolabial fold. His tongue very minimally protrudes to the right. Palatal elevation and sensation normal, hearing and shoulder shrug normal, facial sensation normal. On muscle strength testing, there is no pronator drift and the strength is normal in arms and legs distally and proximally, except right hip flexion which is about 5-. Sensory to touch is equal in the face in the legs with no neglect on double simultaneous stimulation. In the right upper limb, there is slightly decreased sensation with tingling as compared to the left arm. Cerebellar function showed significant ataxia for hobwls-[id number] and ggav-np-[id number] testing only on the right side but not the left. Tone and bulk of muscles normal. Gait deferred. However patient feels his balance is very off partly because of weakness and also because of double vision. On general examination, there is no carotid bruit or murmur, S1-S2 audible. Chest is clear on consultation. Abdomen is soft nontender. No organomegaly, bowel sounds present. Patient has hyperpigmentation of the lower legs. - Labs CBC & Chem 7: 11/29/23 09:51 11/29/23 09:51 Labs: Abnormal Lab Results - Last 24 Hours (Table) 11/27/23 11/28/23 11/28/23 Range/Units 20:20 06:14 11:35 POC Glucose (mg/dL) 258 H 247 H 299 H (70-110) mg/dL 11/28/23 Range/Units 16:30 POC Glucose (mg/dL) 232 H (70-110) mg/dL Assessment and Plan Assessment: Acute ischemic stroke involving the left meenu with possible more central focus of infarct. Patient presented with paresthesias of the right side, gait imbalance and diplopia since 11/23/2023. Current NIH stroke scale is 6. Left M2 segment stenosis. Hypertensive urgency Newly diagnosed uncontrolled DM (HbA1c 11.3) Hyperlipidemia, mild. Medication noncompliance. History of malignant thyroid cancer, 1986 Plan: Patient is showing clinical improvement. His diplopia has improved as well as numbness of the right hand and balance. MRI of the brain revealed acute/subacute CVA involving the left meenu and possible more central focus of infarct also present. Left M2 segment stenosis suggested. For confirmation a CTA head recommended. Scattered nonspecific white matter changes throughout the brain likely secondary to chronic small vessel ischemic disease. I personally reviewed MRI agree with the findings. MRA of the brain: Revealed no evidence of aneurysm. Focal narrowing in the area of concern in the left MCA M2 segment: The area of concern in the left MCA ap pears patent. There is up to 25 to 50% caliber change noted. No additional areas of occlusion or high-grade stenosis to definitively visualized. I personally reviewed MRI agree with the findings. 2D echo: Revealed moderately increased left ventricular wall thickness. Left ventricular cavity size normal. LVEF is normal 55 to 60%. Grade 1 diastolic dysfunction. No obvious regional wall motion abnormalities. Normal left atrial size. Negative agitated saline bubble study for cewvd-gk-[id number] shunt. Lipid panel cholesterol 282, LDL 186, HDL 33, triglycerides 475. We will increase Lipitor from 40 up to 80 mg daily. Carotid Doppler revealed no evidence of hemodynamically significant stenosis. Antegrade flow in both vertebral arteries. HbA1c is 11.3. Recommend optimize control of diabetes to target A1c <7.0. CT cervical showed no evidence of acute spine fracture or malaignement but has mild cervical spondylosis. Patient is started on ASA 325mg daily and Dr. Sandoval also started on Lipitor 40mg qhs for secondary stroke prophylaxis. Patient was not on antiplatelets prior to this. Continue aspirin 81 mg and Plavix 75 mg because of multiple vascular risk factors. Optimize control of blood pressure gradually to normotensive level. TSH 3.040 and Vitamin B12 level 218. Patient has low B12, continue B12 replacement IM for 4 days then orally. Continue neuro checks Cardiac monitoring. PT, OT and CUSTOMS COMPLIANCE ANALYST are consulted. Will defer the rest of medical management to primary team. For DVT prophylaxis: Dr. Sandoval started on subq heparin 5000U every 12 hours. Appreciate input of physical medicine and rehab. Patient probably a candidate for inpatient rehab for 7 to 10 days.
[2023-11-29 11:26] LABS: Glucose,Whole Blood 224 mg/dL (70-110)
--- NOTE | 2023-11-29 13:48 | P.DS ---
Providers Date of admission: 11/25/23 13:07 Expected date of discharge: 11/29/23 Attending physician: Vikki Salinas MD Consults: 11/25/23 13:06 Consult Physician Urgent Consulting Provider: Roshan Sandoval Consult Reason/Comments: cva Do you want consulting provider notified?: Yes 11/28/23 06:30 Consult Physician Routine Consulting Provider: Jakub Harden Consult Reason/Comments: IP rehab Do you want consulting provider notified?: Yes Primary care physician: Jered Barros Hospital Course: Final diagnosis Acute CVA with pontine infarct on the left Diplopia secondary to above Diabetes mellitus, type II, uncontrolled with hyperglycemia History of hypothyroidism Hypertension history Obesity with a BMI of 35.6 GI prophylaxis DVT prophylaxis Full code Discharge disposition Patient is being discharged in a stable condition with guarded prognosis to [facility] rehab. Patient will follow-up with Dr. Jered Barros in the outpatient setting upon discharge. Patient is to continue with aspirin and Plavix for 21 days and then discontinue Plavix and close outpatient follow-up with neurology as scheduled. Total time taken is greater than 35 minutes. Hospital course This is a 73-year-old male who was recently admitted with significant weakness on the right side and complains of diplopia, MRI showing acute/subacute CVA of the left meenu along with left M2 stenosis and underwent thorough neurological workup recommending to continue with Plavix for 21 days as well as aspirin and then may discontinue Plavix with close outpatient follow-up. Patient with we akness evaluated by physical therapy recommending rehab and patient has been accepted at [facility] inpatient rehab. Insurance authorization was approved and patient will be going there for continued strength and mobility today. Please refer to other consultation notes for further HPI. Patient is a diabetic and recommend to continue with current regimen including Accu-Cheks before meals and at bedtime and adjust medications accordingly. Currently no reports of chest pain, shortness of breath, or palpitations. Patient is afebrile. No reports of nausea or vomiting and patient is tolerating diet. Patient will be going to [facility] inpatient rehab today. Guarded prognosis Physical exam: Gen: This is a 73-year-old male who is awake, alert and oriented x 3, well- developed, well-nourished, obese HEENT: Head is atraumatic, normocephalic. Pupils equal, round. Sclerae is anicteric. NECK: Supple. No JVD. No lymphadenopathy. No thyromegaly. LUNGS: Clear to auscultation. No wheezes or rhonchi. No intercostal retractions. HEART: S1, S2 are muffled ABDOMEN: Soft. Obese. Bowel sounds are present. No masses. No tenderness. EXTREMITIES: No pedal edema. No calf tenderness. NEUROLOGICAL: Patient is awake, alert and oriented x3. Cranial nerves 2 through 12 are grossly intact. Diffusely weak, left eye visual disturbances Please refer to medication reconciliation sheet for a list of medications. The impression and plan of care has been dictated by Margaret Blanco, Nurse Practitioner as directed. Dr. Mark MD I have performed a history and examination and MDM of this patient, discussed the same with the dictator, and agree with the dictator's assessment and plan as written ,documented as a scribe. Based on total visit time, I have performed more than 50% of the visit. Patient Condition at Discharge: Fair Plan - Discharge Summary Discharge Rx Participant: Yes New Discharge Prescriptions: New Atorvastatin [Lipitor] 80 mg PO HS tab INSULIN ASPART (NovoLOG) [NovoLOG (formulary)] 0 unit SQ ACHS each Clopidogrel [Plavix] 75 mg PO DAILY 21 Days #21 tab Acetaminophen Tab [Tylenol] 650 mg PO Q4HR PRN tab PRN Reason: Fever And/ Or Pain Cyanocobalamin [Vitamin B-12 Injection] 1,000 mcg IM DAILY each lisinopriL [Zestril] 5 mg PO DAILY tab Aspirin 325 mg PO DAILY tab metFORMIN HCL [Glucophage] 850 mg PO BID-W/MEALS tab Heparin Sodium,Porcine (1 ml) [Heparin Sodium] 5,000 unit SQ Q12HR each Insulin Detemir (Levemir) [Levemir] 30 unit SQ DAILY@0700 each Famotidine [Pepcid] 20 mg PO BID tab Pantoprazole [Protonix] 40 mg PO AC-BRKFST tab Continue Levothyroxine Sodium 137 mcg PO DAILY@1400 Discontinued Ibuprofen [Motrin Ib] 200 mg PO Q8H PRN PRN Reason: Pain Discharge Medication List Levothyroxine Sodium 137 mcg PO DAILY@1400 11/24/23 [History] Acetaminophen Tab [Tylenol] 650 mg PO Q4HR PRN tab 11/29/23 [Rx] Aspirin 325 mg PO DAILY tab 11/29/23 [Rx] Atorvastatin [Lipitor] 80 mg PO HS tab 11/29/23 [Rx] Clopidogrel [Plavix] 75 mg PO DAILY 21 Days #21 tab 11/29/23 [Rx] Cyanocobalamin [Vitamin B-12 Injection] 1,000 mcg IM DAILY each 11/29/23 [Rx] Famotidine [Pepcid] 20 mg PO BID tab 11/29/23 [Rx] Heparin Sodium,Porcine (1 ml) [Heparin Sodium] 5,000 unit SQ Q12HR each 11/29/23 [Rx] INSULIN ASPART (NovoLOG) [NovoLOG (formulary)] 0 unit SQ ACHS each 11/29/23 [Rx] Insulin Detemir (Levemir) [Levemir] 30 unit SQ DAILY@0700 each 11/29/23 [Rx] Pantoprazole [Protonix] 40 mg PO AC-BRKFST tab 11/29/23 [Rx] lisinopriL [Zestril] 5 mg PO DAILY tab 11/29/23 [Rx] metFORMIN HCL [Glucophage] 850 mg PO BID-W/MEALS tab 11/29/23 [Rx] Follow up Appointment(s)/Referral(s): Jered Barros MD [Primary Care Provider] - 1 Week Gisell Kwan MD [Medical Doctor] - 1 Week Activity/Diet/Wound Care/Special Instructions: Patient is going to [facility] inpatient rehab Activity as tolerated Patient is to continue on aspirin and Plavix for 21 days per neurology recommendations, then discontinue Plavix and continue with aspirin indefinitely Follow-up with primary care provider on discharge Follow-up with neurology outpatient in 1 to 2 weeks Continue taking medications as prescribed Continue monitoring Accu-Cheks before meals and at bedtime and continue with sliding scale along with long-acting Continue heart healthy diabetic diet Discharge Disposition: TRANSFER TO SNF/ECF
== END 2023-11-29 16:20 | DRG 66 ==
LOC: EC 12:14 → 3SCARD 13:07
PROVIDERS: ADMIT Internal Medicine; ATTEND Internal Medicine
DX: I63.81 Other cerebral infarction due to occlusion or stenosis of small artery (principal); H53.9 Unspecified visual disturbance; I16.0 Hypertensive urgency; R29.706 NIHSS score 6; R20.2 Paresthesia of skin; Z91.041 Radiographic dye allergy status; Z91.013 Allergy to seafood; E66.9 Obesity, unspecified; Z68.35 Body mass index [BMI] 35.0-35.9, adult; E03.9 Hypothyroidism, unspecified; Z79.890 Hormone replacement therapy; I08.1 Rheumatic disorders of both mitral and tricuspid valves; R26.2 Difficulty in walking, not elsewhere classified; I10 Essential (primary) hypertension; E11.65 Type 2 diabetes mellitus with hyperglycemia; M47.812 Spondylosis without myelopathy or radiculopathy, cervical region; Z79.4 Long term (current) use of insulin; Z79.84 Long term (current) use of oral hypoglycemic drugs; Z85.850 Personal history of malignant neoplasm of thyroid; Z91.148 Patient's other noncompliance with medication regimen for other reason; Z88.7 Allergy status to serum and vaccine
CPT/HCPCS: 36415; 70450; 70544; 70553; 80048; 80053; 80061; 82550; 82607; 83721; 84443; 85025; 85610; 85730; 93005; 93306; 93880; 96361; 96372; 96374; 99285